=== PATIENT | female | born 1970 | race Caucasian/White ===

== ENCOUNTER 2017-01-01 16:48 | Inpatient (IN) ==
[2017-01-01] MEDS ORDERED: *HR* FentaNYL (PF) 100 MCG/2 ML VIAL IVP ONE (16:51)
[2017-01-01] MEDS ORDERED: 0.9 % Sodium Chloride 1,000 ML IVC ONE (16:51)
--- NOTE | 2017-01-01 17:05 | Emergency Department Note ---
Disposition Clinical Impression: Acute pancreatitis Qualifiers: Pancreatitis type: unspecified pancreatitis type Acute pancreatitis complication: unspecified Qualified Code(s): K85.90 - Acute pancreatitis without necrosis or infection, unspecified Disposition: Admitted As Inpatient Condition: Undetermined Referrals: Manny Adler MD [Partnered Physician] - Forms: Work/School Release, ED Satisfaction Letter Time of Disposition: 17:57 Abdominal Pain HPI - General Chief Complaint: ED Abdominal Pain Stated Complaint: Abdominal Pain Time Seen by Provider: 01/01/17 16:51 Source: patient, EMS Mode of arrival: EMS Limitations: no limitations Nursing Notes Reviewed: Yes Vital Signs Reviewed: Yes - History of Present Illness HPI Narrative: 46-year-old female with no previous medical history arrives to [facility] emergency department complaining of epigastric pain with associated nausea and vomiting. The patient called EMS with concern for worsening abdominal pain. The patient denies any actual chest pain but states that she does have epigastric pain that is radiating upward into her sternal region as well as right upper quadrant. The patient has a large amount of tenderness upon palpation of her abdomen. She actually has guarding noted. The patient received IV Zofran in route via EMS. Pt Subjective Complaint: abdominal pain Onset (ago): hour(s) (18) Consistency: constant, now resolved Location: RUQ, epigastric Pain Severity: severe Pain Scale: 10 Quality: stabbing Radiation: RUQ, epigastric Migration to: no migration Improves with: nothing Worsens with: nothing Associated symptoms: Reports: nausea, vomiting Treatments prior to arrival: none - Related Data Previous Rx's Medication Instructions Recorded Doxycycline 100 mg PO BID #14 capsule 07/07/16 metroNIDAZOLE [Flagyl] 500 mg PO BID #14 tablet 07/07/16 Allergies Allergy/AdvReac Type Severity Reaction Status Date / Time No Known Allergies Allergy Verified 07/07/16 16:37 All systems ED: reviewed and negative except as stated. Constitutional: Denies: fever, chills, weakness, weight change Eyes: Denies: eye pain, eye discharge, vision change ENT ED: Denies: ear pain, throat pain, dental pain, hearing loss, epistaxis, congestion, dysphagia Cardiovascular: Denies: chest pain, palpitations, dyspnea on exertion, edema, syncope Respiratory: Denies: cough, dyspnea, wheezes, hemoptysis, stridor Gastrointestinal: Reports: abdominal pain, nausea, vomiting. Denies: diarrhea, constipation, hematemesis, melena, hematochezia Genitourinary: Denies: dysuria, frequency, hematuria, discharge Musculoskeletal: Denies: back pain, neck pain, arthralgia, myalgia Integumentary: Denies: rash, abrasion, lesions Neurological: Denies: headache, weakness, numbness, paresthesias, confusion, abnormal gait, vertigo Abdominal Pain PMH - Past Medical History Medical history: Reports: no medical history Female Surgical History: Reports: other Psychiatric history: Reports: no psych history - Social History Smoking status: Current every day smoker Alcohol use: Reports: occasionally Drug use: Reports: none Physical Exam - General Limitations: no limitations General appearance: alert, in distress - Head Head exam: atraumatic, normocephalic, normal inspection - Eye Eye exam: Present: normal appearance, PERRL, EOMI - ENT ENT exam: normal exam, normal oropharynx, mucous membranes moist - Neck Neck exam: Present: normal inspection, full ROM, trachea midline - Chest Chest inspection: Present: normal inspection, symmetric chest wall rise - Respiratory Respiratory exam: Present: normal lung sounds bilaterally - Cardiovascular Cardiovascular exam: Present: regular rate, normal rhythm, normal heart sounds - Abdominal Exam Abdominal exam: Present: tenderness (Diffuse, RUQ), distention, guarding, rigidity, Zaldivar's sign. Absent: rebound, Rovsing's sign, tenderness at McBurney's Point, ascites, pulsatile mass Abdominal tenderness: Present: RUQ, epigastrium, severe - Extremities Exam Extremities exam: Present: normal inspection, full ROM. Absent: tenderness, pedal edema - Neurological Exam Neurological exam: Present: alert, oriented X3 - Skin Skin exam: Present: warm, dry, intact, normal color Course Vital Signs Temperature 98.4 F 01/01/17 16:51 Pulse Rate 75 01/01/17 16:51 Respiratory Rate 16 01/01/17 16:51 Blood Pressure 165/93 01/01/17 16:51 O2 Sat by Pulse Oximetry 94 01/01/17 16:51 Temperature 98.4 F 01/01/17 16:51 Pulse Rate 86 01/01/17 17:44 Respiratory Rate 16 01/01/17 17:44 Blood Pressure 183/91 01/01/17 17:44 O2 Sat by Pulse Oximetry 97 01/01/17 17:44 Oxygen Delivery Oxygen Delivery Room Air Abdominal Pain - MDM Narrative Medical decision making narrative: Patient's workup in the emergency department demonstrates acute pancreatitis. The patient's CT scan of her abdomen also demonstrates acute pancreatitis. We will admit the patient to the hospital for further work up. Accepted but Jennifer Gonsalves. I examined this patient and my medical decision-making was reviewed with the Resident Physician. I agree with the documented findings, disposition and treatment plan as described except to the extent set forth below. Patient seen and evaluated by Dr. Buckner, I agree with his evaluation and treatment plan, supervise care the patient about staying. Patient presents today having abdominal pain has no fevers here. She admits to being a drinker. She has never had a history of pancreatitis in the past. However CT today does show pancreatitis her lipase is greater than 1000. We are going to bring her into the hospital, for admission. She is in agreement with plan. I do not think she needs an NG tube at this time. Just pain control and nothing by mouth. - Medical Records Medical records reviewed: Yes I reviewed the patient's medical records. - Lab Data Lab results reviewed: Yes I reviewed the patient's lab results. Result diagrams: 01/01/17 17:00 01/01/17 17:00 Lab Results 01/01/17 01/01/17 01/01/17 Range/Units 17:00 17:00 17:00 WBC 10.6 (4.3-11.1) K/mcL RBC 3.97 (3.82-4.97) M/mcL Hgb 14.6 (11.5-15.4) g/dL Hct 42.8 (35.3-44.9) % MCV 107.8 H (83.0-100.0) fL MCH 36.8 H (28.0-33.3) pg MCHC 34.1 (31.6-35.5) g/dL RDW 14.6 H (11.5-14.5) % Plt Count 213 (140-400) K/mcL MPV 10.3 (9.4-12.4) fL Immature Gran % 0.3 (0-4) % Seg Neutrophils % 88.8 % Lymphocytes % 6.8 % Monocytes % 3.9 % Eosinophils % 0.0 % Basophils % 0.2 % Neutrophils # 9.4 H (1.6-8.9) K/mcL Lymphocytes # 0.7 (0.6-4.6) K/mcL Monocytes # 0.4 (0.0-1.3) K/mcL Eosinophils # 0.0 (0.0-0.6) K/mcL Basophils # 0.0 (0.0-0.2) K/mcL Sodium 139 (136-145) mEq/L Potassium 4.0 (3.5-4.5) mEq/L Chloride 105 (98-109) mEq/L Carbon Dioxide 24 (19-29) mEq/L BUN 11 (7-20) mg/dL Creatinine 0.78 (0.57-1.11) mg/dL Est GFR ( Amer) > 60 (> 60) Est GFR (Non-Af Amer) > 60 (> 60) BUN/Creatinine Ratio 14 (6-26) Glucose 128 H (70-99) mg/dL Calculated Osmolality 289 (280-300) Lactic Acid (0.5-2.2) mmol/L Calcium 9.2 (8.6-10.8) mg/dL Total Bilirubin 0.6 (0.2-1.2) mg/dL AST 55 H (5-34) Units/L ALT 25 (0-55) Units/L Alkaline Phosphatase 149 H (38-126) Units/L Troponin I 0.00 (0-0.03) ng/mL Serum Total Protein 7.5 (6.0-8.3) g/dL Albumin 3.5 (3.5-5.0) g/dL Globulin 4.0 H (2.4-3.5) g/dL Albumin/Globulin Ratio 0.9 L (1.1-2.2) Lipase > 1200 H (8-78) Units/L 01/01/ Range/Units 17:17 WBC (4.3-11.1) K/mcL RBC (3.82-4.97) M/mcL Hgb (11.5-15.4) g/dL Hct (35.3-44.9) % MCV (83.0-100.0) fL MCH (28.0-33.3) pg MCHC (31.6-35.5) g/dL RDW (11.5-14.5) % Plt Count (140-400) K/mcL MPV (9.4-12.4) fL Immature Gran % (0-4) % Seg Neutrophils % % Lymphocytes % % Monocytes % % Eosinophils % % Basophils % % Neutrophils # (1.6-8.9) K/mcL Lymphocytes # (0.6-4.6) K/mcL Monocytes # (0.0-1.3) K/mcL Eosinophils # (0.0-0.6) K/mcL Basophils # (0.0-0.2) K/mcL Sodium (136-145) mEq/L Potassium (3.5-4.5) mEq/L Chloride (98-109) mEq/L Carbon Dioxide (19-29) mEq/L BUN (7-20) mg/dL Creatinine (0.57-1.11) mg/dL Est GFR ( Amer) (> 60) Est GFR (Non-Af Amer) (> 60) BUN/Creatinine Ratio (6-26) Glucose (70-99) mg/dL Calculated Osmolality (280-300) Lactic Acid 1.1 (0.5-2.2) mmol/L Calcium (8.6-10.8) mg/dL Total Bilirubin (0.2-1.2) mg/dL AST (5-34) Units/L ALT (0-55) Units/L Alkaline Phosphatase (38-126) Units/L Troponin I (0-0.03) ng/mL Serum Total Protein (6.0-8.3) g/dL Albumin (3.5-5.0) g/dL Globulin (2.4-3.5) g/dL Albumin/Globulin Ratio (1.1-2.2) Lipase (8-78) Units/L - Radiology Data Radiology results reviewed: Yes I reviewed the patient's radiology results. - EKG Data EKG attestation: Yes I reviewed and interpreted this EKG. EKG results narrative: Heart rate 85 minute. MT interval 151 ms. QTc 411 milliseconds. Normal axis. Normal sinus rhythm. No ST elevation or ST depression noted. No previous EKG on record. There are flipped T waves noted in V1. No other flipped P waves noted. Mild MT depression in 3 but may be due to artifact.
[2017-01-01 17:07] LABS: Basophils % 0.2 %; Hematocrit 42.8 % (35.3-44.9); Hemoglobin 14.6 g/dL (11.5-15.4); Immature Granulocytes % 0.3 % (0-4); Lymphocytes # 0.7 K/mcL (0.6-4.6); Lymphocytes % 6.8 %; Mean Corpuscular HGB Conc 34.1 g/dL (31.6-35.5); Mean Corpuscular Hemoglobin 36.8 pg (28.0-33.3); Mean Corpuscular Volume 107.8 fL (83.0-100.0); Mean Platelet Volume 10.3 fL (9.4-12.4); Monocytes # 0.4 K/mcL (0.0-1.3); Monocytes % 3.9 %; Neutrophils # 9.4 K/mcL (1.6-8.9); Platelet Count 213 K/mcL (140-400); Red Blood Count 3.97 M/mcL (3.82-4.97); Red Cell Distribution Width 14.6 % (11.5-14.5); Segmented Neutrophils % 88.8 %
[2017-01-01 17:25] LABS: Alanine Aminotransferase 25 Units/L (0-55); Albumin 3.5 g/dL (3.5-5.0); Albumin/Globulin Ratio 0.9 (1.1-2.2); Alkaline Phosphatase 149 Units/L (38-126); Aspartate Amino Transferase 55 Units/L (5-34); BUN/Creatinine Ratio 14 (6-26); Bilirubin,Total 0.6 mg/dL (0.2-1.2); Blood Urea Nitrogen 11 mg/dL (7-20); Calcium 9.2 mg/dL (8.6-10.8); Carbon Dioxide 24 mEq/L (19-29); Chloride 105 mEq/L (98-109); Glucose 128 mg/dL (70-99); Osmolality,Calculated 289 (280-300); Sodium 139 mEq/L (136-145); Total Protein 7.5 g/dL (6.0-8.3); eGFR For African Americans > 60 (> 60); eGFR For Non-African Americans > 60 (> 60)
[2017-01-01 17:26] LABS: Lipase > 1200 Units/L (8-78)
[2017-01-01] MEDS ORDERED: Ondansetron 4 MG/2 ML VIAL IVP ONE (17:29)
[2017-01-01] MEDS ORDERED: *HR* HYDROmorphone (PF) 1 MG/ML SYRINGE IVP ONE (17:43)
[2017-01-01] MEDS ORDERED: Ondansetron 4 MG/2 ML VIAL IVP PRN (19:53)
[2017-01-01] MEDS ORDERED: Naloxone 0.4 MG/ML INJ IVP PRN (19:53)
--- NOTE | 2017-01-01 20:00 | Internal Med History&Physical ---
Date of Encounter: 01/01/17 Time of Encounter: 19:57 Assessment and Plan (1) Acute pancreatitis Current visit: Yes Status: Acute Secondary to alcoholism. Admit for IV fluids, nothing by mouth except sips and ice chips, reviewed CT abdomen and pelvis by self with evidence of acute hepatitis. IV morphine when necessary, GI prophylaxis. Qualifiers: Pancreatitis type: unspecified pancreatitis type Acute pancreatitis complication: unspecified Qualified Code(s): K85.90 - Acute pancreatitis without necrosis or infection, unspecified (2) Alcoholism Current visit: Yes Status: Acute Discussed cessation. CIWA protocol as needed (3) Tobacco abuse Current visit: Yes Status: Acute Smokes one to one half packs a day. Declined nicotine patch Internal Medicine - H&P: HPI Chief complaint: Abdominal pain History of present illness: Ms. Guo is a 46 year old female with a history of alcoholism who presents with acute onset abdominal pain and was found to have acute pancreatitis on CT abdomen and pelvis with lipase of 100,000. CT scan personally reviewed. She should develop acute epigastric pain since this morning's associated with nausea but without emesis. Pain was rated 10 out of 10 in the epigastric region with no radiation. No worsening or improving factors. Of note she has a history of alcoholism drinking 3-4 cans of tall cans of beer daily with intermittent jagermeister. She reports taking history of off more than 20 years Associated with the pain include 4 times nonbloody diarrhea stools. Past Med Surg Social Fam HX - Past Medical History Medical history: no medical history Psychiatric history: no psych history - Social History Smoking Status: Current every day smoker Smokeless Tobacco Status: No Alcohol use: occasionally Drug use: none Internal Medicine - H&P: Meds No Known Home Drugs 01/01/17 [History] Allergies No Known Allergies Allergy (Verified 01/01/17 18:42) All Systems PM: A 10-system review of systems was performed and is negative for pertinent findings except as documented above in the HPI. Review of systems: ROS 14 point review of systems reviewed. Pertinent positive or negative as per HPI or otherwise reviewed as negative - Constitutional Vitals: Temp Pulse Resp BP Pulse Ox 98.9 F 75 16 170/93 96 01/01/17 19:31 01/01/17 19:31 01/01/17 19:31 01/01/17 19:31 01/01/17 19:31 Exam: General - AAO x 3 Psych - Appropriate affect/speech. No agitation Eyes - ANDREA. Eye lids intact. No scleral icterus ENT - Oral mucosa pink, dentition intact. External ear clear/dry/intact. No thyromegaly Lymphatics - No cervical/inguinal lympadenopathy Neuro - No gross peripheral or central neuro deficits with intact CN 2-12 exam Heart - Sinus. RRR. S1 and S2 present. No added HS/murmurs appreciated. No elevated JVD appreciated. No calf swellings/erythema Lung - Adequate air entry b/l, No crackes/wheezes appreciated GI - Soft, epigastric tenderness, no guarding or rigidity. No hepatosplenomegaly /ascities. BS+ - No CVA/suprapubic tenderness or palpable bladder distension Skin - Intact. No rash/petechiae/ecchymosis. Warm extremities MSK - Joints with normal ROM. No joint swellings Internal Med - H&P Results - Labs CBC & Chem 7: 01/01/17 17:00 01/01/17 17:00
[2017-01-01] MEDS ORDERED: diazePAM 10 MG/2 ML SYRINGE IVP PRN ×5 (20:04)
[2017-01-01] MEDS: 0.9 % Sodium Chloride 1,000 ML IVC SCH (20:34)
[2017-01-01] MEDS: Thiamine (B-1) 100 MG, Folic Acid 1 MG, MVI, adult with vitamin K 10 ML in 0.9 % Sodi... IVPB SCH (22:11)
[2017-01-01] MEDS: Prochlorperazine 10 MG/2 ML VIAL IVP PRN (23:17)
[2017-01-02 01:40] LABS: Basophils % 0.2 %; Hematocrit 39.4 % (35.3-44.9); Hemoglobin 13.3 g/dL (11.5-15.4); Immature Granulocytes % 0.7 % (0-4); Lymphocytes # 0.6 K/mcL (0.6-4.6); Lymphocytes % 6.1 %; Mean Corpuscular HGB Conc 33.8 g/dL (31.6-35.5); Mean Corpuscular Hemoglobin 36.9 pg (28.0-33.3); Mean Corpuscular Volume 109.4 fL (83.0-100.0); Mean Platelet Volume 10.7 fL (9.4-12.4); Monocytes # 0.4 K/mcL (0.0-1.3); Monocytes % 4.3 %; Neutrophils # 9.1 K/mcL (1.6-8.9); Platelet Count 199 K/mcL (140-400); Red Cell Distribution Width 14.6 % (11.5-14.5); Segmented Neutrophils % 88.7 %
[2017-01-02 01:53] LABS: BUN/Creatinine Ratio 13 (6-26); Blood Urea Nitrogen 10 mg/dL (7-20); Calcium 8.2 mg/dL (8.6-10.8); Carbon Dioxide 21 mEq/L (19-29); Chloride 108 mEq/L (98-109); Glucose 117 mg/dL (70-99); Osmolality,Calculated 290 (280-300); Potassium 4.1 mEq/L (3.5-4.5); Sodium 140 mEq/L (136-145); eGFR For African Americans > 60 (> 60); eGFR For Non-African Americans > 60 (> 60)
[2017-01-02 02:15] LABS: Lipase 1552 Units/L (8-78)
[2017-01-02] MEDS: *HR* Morphine 2 MG/ML SYRINGE IVP PRN ×5 (03:50→20:53)
[2017-01-02] MEDS: Ondansetron 4 MG/2 ML VIAL IVP PRN ×5 (03:50→23:42)
[2017-01-02] MEDS: *HR* Enoxaparin 40 MG/0.4 ML SYRINGE SQ SCH (05:20)
[2017-01-02] MEDS: Thiamine (B-1) 100 MG TABLET PO SCH (07:59)
[2017-01-02] MEDS: Vitamin B Complex/Vit C/Vit E 1 EACH TABLET PO SCH (07:59)
[2017-01-02] MEDS: Folic Acid 1 MG TABLET PO SCH (07:59)
[2017-01-02] MEDS: Pantoprazole 40 MG VIAL IVP SCH (08:02)
[2017-01-02] MEDS: 0.9 % Sodium Chloride 1,000 ML IVC SCH ×2 (10:06→16:52)
--- NOTE | 2017-01-02 12:05 | Internal Med Progress Note ---
Date of Encounter: 01/02/17 Time of Encounter: 09:40 - Assessment and plan (1) Acute pancreatitis Current Visit: Yes Status: Acute Assessment and plan: Continue to keep NPO, except clear liquids and medications Continue IVF Check lipid panel Qualifiers: Pancreatitis type: unspecified pancreatitis type Acute pancreatitis complication: unspecified Qualified Code(s): K85.90 - Acute pancreatitis without necrosis or infection, unspecified (2) Alcoholism Current Visit: Yes Status: Chronic Assessment and plan: SW consult Continue CIWA protocol If patient does not require benzodiapzepines in the next 24hrs, will de-escalate Continue M/T/F (3) Tobacco abuse Current Visit: Yes Status: Chronic Assessment and plan: NRT - Subjective Interval history: Seen and evaluated at bedside Still complaining of nausea, she reports her abdominal pain has somewhat improved, but persists Denies ever having hospitalization for alcohol withdrawal She has no hx of alcohol related seizures She has not required any benzodiazepines since arrival - Constitutional Vitals: Temp Pulse Resp BP Pulse Ox 98.2 F 86 17 175/89 96 01/02/17 10:24 01/02/17 10:24 01/02/17 10:24 01/02/17 10:24 01/02/17 10:24 General appearance: Present: mild distress, A&O X 3, pleasant - Head Head exam: Present: atraumatic, normocephalic - Eye Eye exam: Present: PERRL, conjuntiva pink, sclera anicteric Pupils: Present: PERRL - Neck Neck exam general surgery: Present: supple, trachea midline. Absent: lymphadenopathy - Respiratory Respiratory exam: Present: CTAB. Absent: accessory muscle use, rales, rhonchi, wheezes - Cardiovascular Cardiovascular exam: Present: RRR, +S1, +S2. Absent: diastolic murmur, gallop, rubs, systolic murmur - GI/Abdominal GI/Abdominal exam: Present: normal bowel sounds, soft, tenderness (mild epigastric tenderness, no rebound), no peritoneal signs. Absent: distended - Extremities Exam Extremities exam: Present: warm, radial pulses palpable and symetrical. Absent : calf tenderness, cyanotic, pedal edema Additional comments: NO tremors - Neurological Exam Neurological exam: Present: alert, CN II-XII intact, oriented X3, no focal deficits. Absent: pronater drift, facial droop, speech deficit - Skin Skin exam: Present: dry, intact Internal Medicine: Result - Labs CBC & Chem 7: 01/02/17 00:28 01/02/17 00:28 Labs: Short CBC 01/02/17 Range/Units 00:28 WBC 10.2 (4.3-11.1) K/mcL Hgb 13.3 (11.5-15.4) g/dL Hct 39.4 (35.3-44.9) % Plt Count 199 (140-400) K/mcL Neutrophils # 9.1 H (1.6-8.9) K/mcL BMP 01/02/17 00:28 Sodium 140 Potassium 4.1 Chloride 108 Carbon Dioxide 21 BUN 10 Creatinine 0.75 Glucose 117 H Calcium 8.2 L Consult Discharge Plan - Plan Referrals: NONE,PCP [Primary Care Provider] -
--- NOTE | 2017-01-02 16:18 | Electrocardiograph Report ---
[address] [address] Test Date: 2017-01-01 Pat Name: Marilyn Guo Department: 105 Room: [facility] Gender: F [employer]: : 1970 Requested By: Adin Louis Order Number: [id number] Reading MD: Natalya Tidwell Measurements Intervals [place] Rate: 85 P: 37 SD: 151 QRS: 38 QRSD: 80 T: 78 QT: 369 QTc: 411 Interpretive Statements SINUS RHYTHM NONSPECIFIC T-WAVE ABNORMALITY Electronically Signed On 01-02-2017 16:16:33 EDT by Natalya Tidwell
[2017-01-02] MEDS: Thiamine (B-1) 100 MG, Folic Acid 1 MG, MVI, adult with vitamin K 10 ML in 0.9 % Sodi... IVPB SCH (17:48)
[2017-01-02] MEDS ORDERED: Thiamine (B-1) 100 MG, Folic Acid 1 MG, MVI, adult with vitamin K 10 ML in 0.9 % Sodi... IVPB SCH (18:00)
[2017-01-02 19:56] LABS: Bilirubin,Urine Negative (Negative); Blood,Urine Small (Negative); Clarity,Urine Cloudy (Clear); Color,Urine Yellow (Yellow); Glucose,Urine (UA) Normal (Normal); Ketones,Urine >=160 mg/dL (Negative); Leukocyte Esterase,Urine Large (Negative); Nitrite,Urine Negative (Negative); Protein,Urine 30 mg/dL (Neg-Trace); Specific Gravity,Urine 1.019 (1.010-1.025); Urobilinogen,Urine Normal (Normal)
[2017-01-02 19:59] LABS: Bacteria,Urine Few per hpf (None-Few); Hyaline Casts,Urine None Seen per lpf (None-Few); Squamous Epithelial Cell,Urine Many per lpf (None-Few); WBC,Urine TNTC per hpf (0-3)
[2017-01-02] MEDS ORDERED: Metoprolol XL (24 HR) Succ 25 MG TAB.ER.24H PO ONE (20:30)
[2017-01-03] MEDS: *HR* Morphine 2 MG/ML SYRINGE IVP PRN ×6 (01:03→20:37)
[2017-01-03] MEDS: Ondansetron 4 MG/2 ML VIAL IVP PRN ×4 (04:25→20:36)
[2017-01-03] MEDS: *HR* Enoxaparin 40 MG/0.4 ML SYRINGE SQ SCH (04:43)
[2017-01-03 06:39] LABS: Basophils % 0.1 %; Eosinophils % 0.1 %; Hematocrit 31.6 % (35.3-44.9); Immature Granulocytes % 0.5 % (0-4); Lymphocytes # 0.9 K/mcL (0.6-4.6); Lymphocytes % 7.4 %; Mean Corpuscular HGB Conc 34.2 g/dL (31.6-35.5); Mean Corpuscular Hemoglobin 37.5 pg (28.0-33.3); Mean Corpuscular Volume 109.7 fL (83.0-100.0); Mean Platelet Volume 10.9 fL (9.4-12.4); Monocytes # 0.7 K/mcL (0.0-1.3); Monocytes % 6.3 %; Neutrophils # 10.1 K/mcL (1.6-8.9); Platelet Count 151 K/mcL (140-400); Red Blood Count 2.88 M/mcL (3.82-4.97); Red Cell Distribution Width 14.6 % (11.5-14.5); Segmented Neutrophils % 85.6 %
[2017-01-03 06:40] LABS: Hemoglobin 10.8 g/dL (11.5-15.4)
[2017-01-03 06:53] LABS: Alanine Aminotransferase 14 Units/L (0-55); Albumin/Globulin Ratio 0.8 (1.1-2.2); Alkaline Phosphatase 90 Units/L (38-126); Aspartate Amino Transferase 24 Units/L (5-34); BUN/Creatinine Ratio 10 (6-26); Bilirubin,Total 0.7 mg/dL (0.2-1.2); Blood Urea Nitrogen 6 mg/dL (7-20); Carbon Dioxide 17 mEq/L (19-29); Chloride 108 mEq/L (98-109); Chol/HDL Ratio 3.5 (0-4.9); Cholesterol 150 mg/dL (< 200); Globulin 3.2 g/dL (2.4-3.5); Glucose 71 mg/dL (70-99); HDL Cholesterol 43 mg/dL (40-59); LDL Cholesterol,Calculated 90 mg/dL (0-99); Lipase 719 Units/L (8-78); Osmolality,Calculated 278 (280-300); Potassium 3.3 mEq/L (3.5-4.5); Sodium 136 mEq/L (136-145); Triglycerides 85 mg/dL (< 150); eGFR For African Americans > 60 (> 60); eGFR For Non-African Americans > 60 (> 60)
[2017-01-03 06:55] LABS: Albumin 2.7 g/dL (3.5-5.0); Total Protein 5.9 g/dL (6.0-8.3)
[2017-01-03] MEDS: Pantoprazole 40 MG VIAL IVP SCH (08:11)
[2017-01-03] MEDS: 0.9 % Sodium Chloride 1,000 ML IVC SCH ×3 (08:24→22:46)
[2017-01-03] MEDS: Thiamine (B-1) 100 MG TABLET PO SCH (08:31)
[2017-01-03] MEDS: Vitamin B Complex/Vit C/Vit E 1 EACH TABLET PO SCH (08:31)
[2017-01-03] MEDS: Folic Acid 1 MG TABLET PO SCH (08:31)
[2017-01-03] MEDS ORDERED: amLODIPine 5 MG TABLET PO SCH (09:00)
--- NOTE | 2017-01-03 11:45 | Internal Med Progress Note ---
Date of Encounter: 01/03/17 Time of Encounter: 09:00 - Assessment and plan (1) Acute pancreatitis Current Visit: Yes Status: Acute Assessment and plan: Advance patient's diet as tolerated, continue morphine for pain, add Tylenol and by mouth medications for pain. Lipase is down trending, patient has good bowel sounds Lipid panel is unremarkable for hypertriglyceridemia. Continue IVF Qualifiers: Pancreatitis type: unspecified pancreatitis type Acute pancreatitis complication: unspecified Qualified Code(s): K85.90 - Acute pancreatitis without necrosis or infection, unspecified (2) Alcoholism Current Visit: Yes Status: Chronic Assessment and plan: SW consult Change [facility] protocol to q48h Continue M/T/F (3) Tobacco abuse Current Visit: Yes Status: Chronic Assessment and plan: NRT (4) Hypertension Current Visit: Yes Status: Chronic Assessment and plan: Started on Norvasc 10mg daily, continue to monitor Qualifiers: Hypertension type: essential hypertension Qualified Code(s): I10 - Essential (primary) hypertension (5) UTI (urinary tract infection) Current Visit: Yes Status: Suspected Assessment and plan: Suspected, based on symptoms and abnormal UA Patient also has leukocytosis this morning, she is afebrile and not tachycardic Started on Ceftriaxone Qualifiers: Urinary tract infection type: acute cystitis Hematuria presence: with hematuria Qualified Code(s): N30.01 - Acute cystitis with hematuria (6) Anemia Current Visit: Yes Status: Chronic Assessment and plan: Sent folate, vitamin B12, and iron studies. Anemia is macrocytic and is possibly due to alcohol use. Continue to monitor hemoglobin. Qualifiers: Anemia type: unspecified type Qualified Code(s): D64.9 - Anemia, unspecified (7) Hypokalemia Current Visit: Yes Status: Acute Assessment and plan: Potassium has been replaced IV continue to monitor. - Subjective Interval history: Seen and evaluated at bedside Patient is admitted and being managed for alcoholic acute pancreatitis, She is seen and evaluated at the bedside this morning, she reports improvement in and her abdominal pain and nausea. Of note, her blood pressure has remained persistently high since admission, patient denied a history of hypertension. She also complained of dysuria, and a urinalysis done yesterday revealed suspected UTI. Patient is tolerating clear liquid diet. She is still requiring IV pain medications. she has not required any benzodiazepines since admission. - Constitutional Vitals: Temp Pulse Resp BP Pulse Ox 98.7 F 86 18 152/87 95 01/03/17 09:44 01/03/17 09:44 01/03/17 09:44 01/03/17 09:44 01/03/17 09:44 General appearance: Present: A&O X 3, pleasant, no acute distress - Head Head exam: Present: atraumatic, normocephalic - Eye Eye exam: Present: PERRL, conjuntiva pink, sclera anicteric Pupils: Present: PERRL - Neck Neck exam general surgery: Present: supple, trachea midline. Absent: lymphadenopathy - Respiratory Respiratory exam: Present: CTAB. Absent: accessory muscle use, rales, rhonchi, wheezes - Cardiovascular Cardiovascular exam: Present: RRR, +S1, +S2. Absent: diastolic murmur, gallop, rubs, systolic murmur - GI/Abdominal GI/Abdominal exam: Present: normal bowel sounds, soft, tenderness (mild, epigastric), no peritoneal signs. Absent: distended - Extremities Exam Extremities exam: Present: warm, radial pulses palpable and symetrical. Absent : calf tenderness, cyanotic, pedal edema - Neurological Exam Neurological exam: Present: alert, CN II-XII intact, oriented X3, no focal deficits. Absent: pronater drift, facial droop, speech deficit - Skin Skin exam: Present: dry, intact Internal Medicine: Result - Labs CBC & Chem 7: 01/03/17 05:32 01/03/17 05:32 Labs: Short CBC 01/03/17 Range/Units 05:32 WBC 11.8 H (4.3-11.1) K/mcL Hgb 10.8 L D (11.5-15.4) g/dL Hct 31.6 L (35.3-44.9) % Plt Count 151 (140-400) K/mcL Neutrophils # 10.1 H (1.6-8.9) K/mcL BMP 01/03/17 05:32 Sodium 136 Potassium 3.3 L Chloride 108 Carbon Dioxide 17 L BUN 6 L Creatinine 0.63 Glucose 71 Calcium 8.0 L Liver Function 01/03/17 Range/Units 05:32 Total Bilirubin 0.7 (0.2-1.2) mg/dL AST 24 (5-34) Units/L ALT 14 (0-55) Units/L Alkaline Phosphatase 90 (38-126) Units/L Albumin 2.7 L D (3.5-5.0) g/dL Urine 01/02/17 Range/Units 19:45 Urine Color Yellow (Yellow) Urine Clarity Cloudy A (Clear) Urine pH 6.0 (5.0-8.0) pH Units Ur Specific Dorothy 1.019 (1.010-1.025) Urine Protein 30 H (Neg-Trace) mg/dL Urine Glucose (UA) Normal (Normal) mg/dL Consult Discharge Plan - Plan Referrals: NONE,PCP [Primary Care Provider] -
[2017-01-03] MEDS ORDERED: Acetaminophen 325 MG TABLET PO PRN (14:07)
[2017-01-03] MEDS: *HR* OxyCODONE Immed Rel 5 MG TABLET PO PRN ×2 (14:49→22:49)
[2017-01-03] MEDS ORDERED: Sennosides/Docusate Sodium TABLET PO SCH (15:15)
[2017-01-03] MEDS: Prochlorperazine 10 MG/2 ML VIAL IVP PRN (17:05)
[2017-01-03] MEDS: Thiamine (B-1) 100 MG, Folic Acid 1 MG, MVI, adult with vitamin K 10 ML in 0.9 % Sodi... IVPB SCH (17:20)
[2017-01-03] MEDS ORDERED: Metoprolol XL (24 HR) Succ 25 MG TAB.ER.24H PO ONE (19:24)
[2017-01-04] MEDS: Ondansetron 4 MG/2 ML VIAL IVP PRN ×2 (00:36→04:31)
[2017-01-04 00:49] VITALS: BP 163/77
[2017-01-04 01:43] LABS: Basophils % 0.1 %; Eosinophils % 0.3 %; Hematocrit 29.1 % (35.3-44.9); Hemoglobin 10.1 g/dL (11.5-15.4); Immature Granulocytes % 0.7 % (0-4); Lymphocytes # 0.9 K/mcL (0.6-4.6); Mean Corpuscular HGB Conc 34.7 g/dL (31.6-35.5); Mean Corpuscular Hemoglobin 37.4 pg (28.0-33.3); Mean Corpuscular Volume 107.8 fL (83.0-100.0); Mean Platelet Volume 10.1 fL (9.4-12.4); Monocytes # 0.7 K/mcL (0.0-1.3); Monocytes % 7.1 %; Neutrophils # 8.3 K/mcL (1.6-8.9); Platelet Count 153 K/mcL (140-400); Red Cell Distribution Width 14.4 % (11.5-14.5); Segmented Neutrophils % 82.8 %
[2017-01-04 01:55] LABS: BUN/Creatinine Ratio 6 (6-26); Calcium 8.5 mg/dL (8.6-10.8); Carbon Dioxide 17 mEq/L (19-29); Chloride 107 mEq/L (98-109); Glucose 89 mg/dL (70-99); Lipase 295 Units/L (8-78); Osmolality,Calculated 272 (280-300); Potassium 3.3 mEq/L (3.5-4.5); Sodium 133 mEq/L (136-145); eGFR For African Americans > 60 (> 60); eGFR For Non-African Americans > 60 (> 60)
[2017-01-04 01:56] LABS: Blood Urea Nitrogen 3 mg/dL (7-20)
[2017-01-04 01:57] LABS: % Iron Saturation 10 % (15-50); Iron 22 mcg/dL (50-170); Transferrin 159 mg/dL (180-382)
[2017-01-04 02:32] LABS: Folate 19.1 ng/mL (7.0-31.4)
[2017-01-04] MEDS: *HR* Morphine 2 MG/ML SYRINGE IVP PRN (03:08)
[2017-01-04] MEDS: *HR* Enoxaparin 40 MG/0.4 ML SYRINGE SQ SCH (04:31)
--- NOTE | 2017-01-04 13:52 | Event Note ---
Date of Encounter: 01/04/17 Time of Encounter: 13:48 Patient was said to have signed AMA prior to the begining of my shift I did not evaluate her this morning She was being managed for UTI, Pancreatitis and HTN She is an alcoholic Her urine culture is growing GPC, suspected enterococcus I have sent a script for Omnicef and Amlodipine to the pharmacy electronically and have requested the charge nurse Giana to kindly call the patient and have her order picker the medications
== END 2017-01-04 06:50 | disposition left against medical advice (07) | DRG 282 ==
LOC: EMEROO 16:48 → 3NENU 16:48
PROVIDERS: ADMIT Nurse Practitioner Family; ATTEND Internal Medicine

== ENCOUNTER 2017-12-15 20:58 | Inpatient (IN) ==
[2017-12-15 21:22] LABS: Bilirubin,Urine Small (Negative); Blood,Urine Negative (Negative); Clarity,Urine Turbid (Clear); Color,Urine Dark Yellow (Yellow); Glucose,Urine (UA) Normal (Normal); Ketones,Urine Trace mg/dL (Negative); Leukocyte Esterase,Urine Moderate (Negative); Nitrite,Urine Positive (Negative); Protein,Urine 30 mg/dL (Neg-Trace); Specific Gravity,Urine 1.016 (1.010-1.025); Urobilinogen,Urine Normal (Normal)
[2017-12-15 21:24] LABS: Bacteria,Urine Many per hpf (None-Few); Squamous Epithelial Cell,Urine Many per lpf (None-Few); WBC,Urine 30-50 per hpf (0-3)
[2017-12-15] MEDS ORDERED: 0.9 % Sodium Chloride 1,000 ML IVC ONE (22:13)
[2017-12-15] MEDS ORDERED: *HR* FentaNYL (PF) 100 MCG/2 ML VIAL IVP ONE (22:13)
[2017-12-15] MEDS ORDERED: Ondansetron 4 MG/2 ML VIAL IVP ONE (22:13)
--- NOTE | 2017-12-15 22:15 | Emergency Department Note ---
Disposition Clinical Impression: Acute pancreatitis Qualifiers: Pancreatitis type: alcohol induced Acute pancreatitis complication: no infection or necrosis Qualified Code(s): K85.20 - Alcohol induced acute pancreatitis without necrosis or infection Disposition: Admitted As Inpatient Condition: Fair Referrals: Beverly Serna MD [Primary Care Provider] - Forms: ED Satisfaction Letter, Work/School Release Time of Disposition: 23:56 Abdominal Pain HPI - General Chief Complaint: ED Abdominal Pain Stated Complaint: abdominal pain Time Seen by Provider: 12/15/17 21:54 Source: patient, EMS Mode of arrival: EMS Limitations: no limitations Nursing Notes Reviewed: Yes Vital Signs Reviewed: Yes - History of Present Illness Pt Subjective Complaint: abdominal pain Onset (ago): hour(s) (Started this morning) Consistency: constant Location: LUQ, epigastric Pain Severity: severe Pain Scale: 10 Quality: sharp Radiation: back Migration to: no migration Improves with: nothing Worsens with: eating, other (Deep breaths) Context: history of similar episodes (Secondary to pancreatitis which has been a result of alcohol intake. Patient did a lot of drinking on Thursday night.) Associated symptoms: Reports: nausea, vomiting Treatments prior to arrival: none - Related Data Previous Rx's Medication Instructions Recorded Cefdinir [Omnicef] 300 mg PO DAILY #6 capsule 01/04/17 Allergies Allergy/AdvReac Type Severity Reaction Status Date / Time No Known Allergies Allergy Verified 01/01/17 18:42 All systems ED: reviewed and negative except as stated. Constitutional: Denies: fever, chills ENT ED: Denies: ear pain, throat pain, congestion Cardiovascular: Denies: chest pain, palpitations Respiratory: Denies: cough, dyspnea Gastrointestinal: Reports: abdominal pain, nausea, vomiting. Denies: diarrhea Genitourinary: Denies: urgency, dysuria, frequency Musculoskeletal: Reports: back pain Integumentary: Denies: rash Neurological: Denies: headache Abdominal Pain PMH - Past Medical History Medical history: Reports: no medical history Female Surgical History: Reports: other Psychiatric history: Reports: no psych history - Social History Smoking status: Current every day smoker Alcohol use: Reports: occasionally Drug use: Reports: none Physical Exam - General Limitations: no limitations General appearance: alert, in no apparent distress - Head Head exam: atraumatic, normocephalic, normal inspection - Eye Eye exam: Present: normal appearance, PERRL, EOMI. Absent: scleral icterus, conjunctival injection - ENT ENT exam: normal exam, normal oropharynx, mucous membranes dry, normal external ear exam - Neck Neck exam: Present: normal inspection, full ROM - Chest Chest inspection: Present: normal inspection, symmetric chest wall rise. Absent : tenderness - Respiratory Respiratory exam: Present: normal lung sounds bilaterally. Absent: respiratory distress, wheezes - Cardiovascular Cardiovascular exam: Present: regular rate, normal rhythm, normal heart sounds - Abdominal Exam Abdominal exam: Present: soft, tenderness, normal bowel sounds. Absent: distention Abdominal tenderness: Present: LUQ, epigastrium, severe - Extremities Exam Extremities exam: Present: normal inspection. Absent: pedal edema - Neurological Exam Neurological exam: Present: alert, oriented X3 - Psychiatric Psychiatric exam: Present: normal affect, normal mood - Skin Skin exam: Present: warm, dry. Absent: rash Course Course Narrative: Patient presents with epigastric and left upper quadrant pain that certainly sounds like could be pancreatitis. Examination seems consistent with that as well. I will get her some medicines for sent him relief. We will do a belly pain workup on her. I am and a CT her abdomen to help assess for pancreatitis as well as other possible causes. Disposition will be based on diagnostic results and reevaluation. - Reevaluation(s) Reevaluation #1: Labs show elevated lipase. CT confirms pancreatitis. No other competitions identified. Patient is to be admitted to the hospital. Of already spoken with the hospitalist. Time: 23:55 - Consultations Consultation #1: Dr. Reyes, hospitalist - I discussed the case with the hospitalist. He accepted the patient for admission. He wants her on a telemetry bed. Time: 23:55 Vital Signs Temperature 98.1 F 12/15/17 21:07 Pulse Rate 98 12/15/17 21:07 Respiratory Rate 18 12/15/17 21:07 Blood Pressure 156/108 12/15/17 21:07 O2 Sat by Pulse Oximetry 97 12/15/17 21:07 Temperature 98.1 F 12/15/17 21:52 Pulse Rate 98 12/15/17 21:52 Respiratory Rate 18 12/15/17 21:52 Blood Pressure 156/108 12/15/17 21:52 O2 Sat by Pulse Oximetry 97 12/15/17 21:52 Oxygen Delivery Oxygen Delivery Room Air Abdominal Pain - Lab Data Lab results reviewed: Yes I reviewed the patient's lab results. Result diagrams: 12/15/17 22:12 12/15/17 22:12 Lab Results 12/15/17 12/15/17 12/15/17 Range/Units 21:00 21:00 22:12 WBC 10.8 (4.3-11.1) K/mcL RBC 4.80 (3.82-4.97) M/mcL Hgb 18.1 H (11.5-15.4) g/dL Hct 50.3 H (35.3-44.9) % MCV 104.8 H (83.0-100.0) fL MCH 37.7 H (28.0-33.3) pg MCHC 36.0 H (31.6-35.5) g/dL RDW 14.6 H (11.5-14.5) % Plt Count 205 (140-400) K/mcL MPV 11.1 (9.4-12.4) fL Immature Gran % 0.5 (0-4) % Seg Neutrophils % 81.7 % Lymphocytes % 11.8 % Monocytes % 5.5 % Eosinophils % 0.2 % Basophils % 0.3 % Neutrophils # 8.8 (1.6-8.9) K/mcL Lymphocytes # 1.3 (0.6-4.6) K/mcL Monocytes # 0.6 (0.0-1.3) K/mcL Eosinophils # 0.0 (0.0-0.6) K/mcL Basophils # 0.0 (0.0-0.2) K/mcL Sodium (136-145) mEq/L Potassium (3.5-5.1) mEq/L Chloride (98-107) mEq/L Carbon Dioxide (23-29) mEq/L BUN (6-20) mg/dL Creatinine (0.60-1.20) mg/dL Est GFR ( Amer) (> 60) Est GFR (Non-Af Amer) (> 60) BUN/Creatinine Ratio (6-26) Glucose (70-105) mg/dL Calculated Osmolality (280-300) Lactic Acid (0.5-2.2) mmol/L Calcium (8.6-10.3) mg/dL Total Bilirubin (0.3-1.0) mg/dL Direct Bilirubin (0.0-0.2) mg/dL Indirect Bilirubin (0.0-1.2) mg/dL AST (13-39) Units/L ALT (7-52) Units/L Alkaline Phosphatase (34-104) Units/L Serum Total Protein (6.4-8.9) g/dL Albumin (3.5-5.7) g/dL Globulin (2.4-3.5) g/dL Albumin/Globulin Ratio (1.1-2.2) Lipase (11-82) Units/L Urine Color Dark Yellow (Yellow) Urine Clarity Turbid A (Clear) Urine pH 7.0 (5.0-8.0) pH Units Ur Specific [place] 1.016 (1.010-1.025) Urine Protein 30 H (Neg-Trace) mg/dL Urine Glucose (UA) Normal (Normal) mg/dL Urine Ketones Trace H (Negative) mg/dL Urine Blood Negative (Negative) Urine Nitrite Positive A (Negative) Urine Bilirubin Small H (Negative) Urine Urobilinogen Normal (Normal) mg/dL Ur Leukocyte Esterase Moderate H (Negative) Urine Microscopic RBC 5-15 H (0-3) per hpf Urine Microscopic WBC 30-50 H (0-3) per hpf Ur Squamous Epith Cells Many H (None-Few) per lpf Urine Bacteria Many H (None-Few) per hpf Ur Culture Indicated? NO. A (NO) Urine Test Negative (Negative) Ethyl Alcohol (Less than 10) mg/dL 12/15/17 12/15/17 Range/Units 22:12 22:41 WBC (4.3-11.1) K/mcL RBC (3.82-4.97) M/mcL Hgb (11.5-15.4) g/dL Hct (35.3-44.9) % MCV (83.0-100.0) fL MCH (28.0-33.3) pg MCHC (31.6-35.5) g/dL RDW (11.5-14.5) % Plt Count (140-400) K/mcL MPV (9.4-12.4) fL Immature Gran % (0-4) % Seg Neutrophils % % Lymphocytes % % Monocytes % % Eosinophils % % Basophils % % Neutrophils # (1.6-8.9) K/mcL Lymphocytes # (0.6-4.6) K/mcL Monocytes # (0.0-1.3) K/mcL Eosinophils # (0.0-0.6) K/mcL Basophils # (0.0-0.2) K/mcL Sodium 140 (136-145) mEq/L Potassium 3.7 (3.5-5.1) mEq/L Chloride 104 (98-107) mEq/L Carbon Dioxide 24 (23-29) mEq/L BUN 6 (6-20) mg/dL Creatinine 0.65 (0.60-1.20) mg/dL Est GFR ( Amer) > 60 (> 60) Est GFR (Non-Af Amer) > 60 (> 60) BUN/Creatinine Ratio 9 (6-26) Glucose 147 H (70-105) mg/dL Calculated Osmolality 290 (280-300) Lactic Acid 0.9 (0.5-2.2) mmol/L Calcium 9.9 (8.6-10.3) mg/dL Total Bilirubin 0.7 (0.3-1.0) mg/dL Direct Bilirubin 0.2 (0.0-0.2) mg/dL Indirect Bilirubin 0.5 (0.0-1.2) mg/dL AST 44 H (13-39) Units/L ALT 52 (7-52) Units/L Alkaline Phosphatase 138 H (34-104) Units/L Serum Total Protein 7.1 (6.4-8.9) g/dL Albumin 4.3 (3.5-5.7) g/dL Globulin 2.8 (2.4-3.5) g/dL Albumin/Globulin Ratio 1.5 (1.1-2.2) Lipase 673 H (11-82) Units/L Urine Color (Yellow) Urine Clarity (Clear) Urine pH (5.0-8.0) pH Units Ur Specific [place] (1.010-1.025) Urine Protein (Neg-Trace) mg/dL Urine Glucose (UA) (Normal) mg/dL Urine Ketones (Negative) mg/dL Urine Blood (Negative) Urine Nitrite (Negative) Urine Bilirubin (Negative) Urine Urobilinogen (Normal) mg/dL Ur Leukocyte Esterase (Negative) Urine Microscopic RBC (0-3) per hpf Urine Microscopic WBC (0-3) per hpf Ur Squamous Epith Cells (None-Few) per lpf Urine Bacteria (None-Few) per hpf Ur Culture Indicated? (NO) Urine Test (Negative) Ethyl Alcohol < 10 (Less than 10) mg/dL - Radiology Data Radiology results reviewed: Yes I reviewed the patient's radiology results.
[2017-12-15 22:43] LABS: Basophils % 0.3 %; Eosinophils % 0.2 %; Hematocrit 50.3 % (35.3-44.9); Hemoglobin 18.1 g/dL (11.5-15.4); Immature Granulocytes % 0.5 % (0-4); Lymphocytes # 1.3 K/mcL (0.6-4.6); Lymphocytes % 11.8 %; Mean Corpuscular Hemoglobin 37.7 pg (28.0-33.3); Mean Corpuscular Volume 104.8 fL (83.0-100.0); Mean Platelet Volume 11.1 fL (9.4-12.4); Monocytes # 0.6 K/mcL (0.0-1.3); Monocytes % 5.5 %; Neutrophils # 8.8 K/mcL (1.6-8.9); Platelet Count 205 K/mcL (140-400); Red Cell Distribution Width 14.6 % (11.5-14.5); Segmented Neutrophils % 81.7 %
[2017-12-15 23:21] LABS: Alanine Aminotransferase 52 Units/L (7-52); Albumin 4.3 g/dL (3.5-5.7); Albumin/Globulin Ratio 1.5 (1.1-2.2); Alkaline Phosphatase 138 Units/L (34-104); Aspartate Amino Transferase 44 Units/L (13-39); BUN/Creatinine Ratio 9 (6-26); Bilirubin,Direct 0.2 mg/dL (0.0-0.2); Bilirubin,Indirect 0.5 mg/dL (0.0-1.2); Bilirubin,Total 0.7 mg/dL (0.3-1.0); Blood Urea Nitrogen 6 mg/dL (6-20); Calcium 9.9 mg/dL (8.6-10.3); Carbon Dioxide 24 mEq/L (23-29); Chloride 104 mEq/L (98-107); Ethanol < 10 mg/dL (Less than 10); Globulin 2.8 g/dL (2.4-3.5); Glucose 147 mg/dL (70-105); Lipase 673 Units/L (11-82); Osmolality,Calculated 290 (280-300); Potassium 3.7 mEq/L (3.5-5.1); Sodium 140 mEq/L (136-145); Total Protein 7.1 g/dL (6.4-8.9); eGFR For African Americans > 60 (> 60); eGFR For Non-African Americans > 60 (> 60)
--- NOTE | 2017-12-16 00:50 | Internal Med History&Physical ---
Date of Encounter: 12/16/17 Time of Encounter: 00:47 Internal Medicine - H&P: HPI Chief complaint: Abd pain Admitted From: Home History of present illness: Ms. Guo is a 47 year old female with a past medical history of pancreatitis, alcohol dependence, and tobacco dependence who presented complaining of abdominal pain for 1 week and gradually getting worse since yesterday morning. Pain is located in epigastric and left upper quadrant region, constant, sharp, and radiates to her back. Nothing makes it better or worse. Patient reports associated nausea and vomiting and history of similar symptoms in the past when she was treated for alcoholic pancreatitis. Patient reports drinking 3 tall boy beers daily. She also reports occasional chills and foul smelling urine. Patient denies associated fever, chest pain, shortness of breath, diarrhea, constipation, or leg edema. Patient denies history of alcohol withdrawal seizures in the past Past Med Surg Social Fam HX - Past Medical History Medical history: other (Pancreatitis) Psychiatric history: no psych history - Past Surgical History Surgical History: other Additional surgical history: skin CA on chest removal, salivia gland removed. - Social History Smoking Status: Current every day smoker Smokeless Tobacco Status: No Alcohol use: occasionally Drug use: none Current living situation: Home - Independent - Family History Mother Adopted: No Living Status: Hx Family Cardiac Disorders: No Hx Family Respiratory Disorders: No Hx Family Cancer: Yes Hx Family GI Disorders: No Hx Family Endocrine Disorder: No Hx Family Neuromuscular Disorders: No Hx Family Neurologic Disorders: No Hx Family HEENT Disorders: No Hx Family Autoimmune Disorders: No Father Name: Adin Guo Cause of : Brain bleed Hx Family Neurologic Disorders: Yes (Hemorrhagic CVA) Internal Medicine - H&P: Meds Cefdinir [Omnicef] 300 mg PO DAILY #6 capsule 01/04/17 [Rx] 3 Allergy/AdvReac Type Severity Reaction Status Date / Time No Known Allergies Allergy Verified 01/01/17 18:42 All Systems PM: A 10-system review of systems was performed and is negative for pertinent findings except as documented above in the HPI. - Constitutional Constitutional: anorexia, chills, fatigue, no fever(s), no lethargy, no weakness , no weight gain, no weight loss - EENT Eyes: no blurry vision, no diplopia Nose, mouth and throat: no sinus pressure, no sore throat - Cardiovascular Cardiovascular ROS IM: no chest pain, no dyspnea, no edema - Respiratory Respiratory: no cough, no dyspnea on exertion, no wheezing - Gastrointestinal Gastrointestinal: abdominal pain, cramping, nausea, vomiting, no diarrhea, no heartburn, no hematemesis, no hematochezia, no melena - Genitourinary Genitourinary: dysuria (foul odor), urinary frequency, urinary urgency, no hematuria - Musculoskeletal Musculoskeletal ROS IM: no back pain, no numbness, no tingling - Integumentary Integumentary IM: no new lesions, no rash, no skin ulcer - Neurological Neurological ROS: no confusion, no numbness, no tingling, no weakness - Psychiatric Psychiatric: no anxiety, no depression - Endocrine Endocrine IM: fatigue, no flushing, no polydipsia, no polyphagia, no polyuria - Hematologic/Lymphatic Hematologic/Lymphatic: no easy bleeding, no easy bruising - Constitutional Vitals: Temp Pulse Resp BP Pulse Ox 98.2 F 67 19 188/90 97 12/16/17 00:43 12/16/17 00:43 12/16/17 00:43 12/16/17 00:43 12/16/17 00:43 General appearance: Present: cooperative, mild distress, pleasant, answers questions appropriately - Head Head exam: Present: atraumatic, normocephalic - Eye Eye exam: Present: EOMI, PERRL, conjuntiva pink, sclera anicteric Pupils: Present: PERRL - ENT ENT exam: Present: mucous membranes dry, normal oropharynx - Neck Neck exam general surgery: Present: supple, trachea midline. Absent: lymphadenopathy - Respiratory Respiratory exam: Present: CTAB. Absent: accessory muscle use, rales, rhonchi, wheezes - Cardiovascular Cardiovascular exam: Present: RRR, +S1, +S2. Absent: diastolic murmur, gallop, rubs, systolic murmur - GI/Abdominal GI/Abdominal exam: Present: normal bowel sounds, soft, tenderness (Epigastric), no peritoneal signs. Absent: distended - Extremities Exam Extremities exam: Present: normal capillary refill, warm, radial pulses palpable and symmetrical. Absent: calf tenderness, cyanotic, pedal edema - Back Exam Back exam: Present: normal inspection. Absent: CVA tenderness (L), CVA tenderness (R), paraspinal tenderness, tenderness - Neurological Exam Neurological exam: Present: CN II-XII intact, oriented X3, no focal deficits. Absent: pronater drift, facial droop, speech deficit - Psychiatric Psychiatric exam: Present: anxious, normal affect - Skin Skin exam: Present: dry, intact, normal color (tattoos), warm Internal Med - H&P Results - Labs CBC & Chem 7: 12/15/17 22:12 12/15/17 22:12 - Pulse Oximetry Interpretation Digit-Finger O2 Sat by Pulse Oximetry: 97 (Room air) - Impressions ITS Impressions Abdomen/Pelvis CT 12/15/17 22:12 IMPRESSION: Acute pancreatitis. D/ / Lul Castañeda MD / Lul Castañeda MD Interpreting Provider: Lul Castañeda MD - Assessment and plan (1) Acute pancreatitis Current Visit: Yes Status: Acute Assessment and plan: Patient with abdominal pain, nausea, vomiting, and lipase level 637 CT abdomen and pelvis revealed acute pancreatitis Continue IV hydration Continue pain control Continue antiemetics NPO, advance diet to clear liquid diet as tolerated Continue close monitoring Qualifiers: Pancreatitis type: alcohol induced Acute pancreatitis complication: no infection or necrosis Qualified Code(s): K85.20 - Alcohol induced acute pancreatitis without necrosis or infection (2) Alcoholism Current Visit: No Status: Chronic Assessment and plan: Patient denies history of alcohol withdrawal seizures in the past Patient drinks 3 tall boy beers daily Blood alcohol level less than 10 Continue monitoring for signs of withdrawal (3) UTI (urinary tract infection) Current Visit: No Status: Suspected Assessment and plan: Patient reports foul smelling urine, frequency, and urgency UA revealed turbid appearance, positive nitrite, moderate leukocyte esterase and elevated white blood cell count Start Rocephin IV (day 1) Qualifiers: Urinary tract infection type: acute cystitis Hematuria presence: with hematuria Qualified Code(s): N30.01 - Acute cystitis with hematuria (4) Hypertension Current Visit: No Status: Chronic Assessment and plan: Blood pressure elevated today in the setting of pain from acute pancreatitis Continue hydralazine when necessary Consider starting antihypertensive medication upon discharge if blood pressure remains elevated despite adequate pain control Qualifiers: Hypertension type: essential hypertension Qualified Code(s): I10 - Essential (primary) hypertension (5) Tobacco abuse Current Visit: No Status: Chronic Assessment and plan: Tobacco cessation discussed Nicotine patch ordered (6) DVT prophylaxis Current Visit: Yes Status: Acute Assessment and plan: Ambulation TID - Time Spent With Patient Total time spent is greater than 50% in coordination of care (as documented) at patient's floor/unit and/or counseling patient:
[2017-12-16] MEDS ORDERED: Naloxone 0.4 MG/ML INJ IVP PRN (01:15)
[2017-12-16] MEDS ORDERED: Ketorolac 15 MG/ML VIAL IVP ONE (01:18)
[2017-12-16] MEDS ORDERED: Nicotine 14 MG PATCH.TD24 TD SCH ×2 (01:19→02:00)
[2017-12-16 01:54] LABS: Hematocrit 45.5 % (35.3-44.9); Mean Corpuscular HGB Conc 35.8 g/dL (31.6-35.5); Mean Corpuscular Hemoglobin 37.8 pg (28.0-33.3); Mean Corpuscular Volume 105.6 fL (83.0-100.0); Mean Platelet Volume 11.2 fL (9.4-12.4); Platelet Count 195 K/mcL (140-400); Red Blood Count 4.31 M/mcL (3.82-4.97); Red Cell Distribution Width 14.6 % (11.5-14.5)
[2017-12-16 01:58] LABS: Hemoglobin 16.3 g/dL (11.5-15.4)
[2017-12-16 02:03] LABS: Alanine Aminotransferase 43 Units/L (7-52); Albumin 3.8 g/dL (3.5-5.7); Albumin/Globulin Ratio 1.5 (1.1-2.2); Alkaline Phosphatase 119 Units/L (34-104); Aspartate Amino Transferase 34 Units/L (13-39); BUN/Creatinine Ratio 11 (6-26); Bilirubin,Total 0.6 mg/dL (0.3-1.0); Blood Urea Nitrogen 6 mg/dL (6-20); Calcium 8.9 mg/dL (8.6-10.3); Carbon Dioxide 22 mEq/L (23-29); Chloride 108 mEq/L (98-107); Globulin 2.6 g/dL (2.4-3.5); Glucose 147 mg/dL (70-105); Osmolality,Calculated 290 (280-300); Potassium 3.5 mEq/L (3.5-5.1); Sodium 140 mEq/L (136-145); Total Protein 6.4 g/dL (6.4-8.9); eGFR For African Americans > 60 (> 60); eGFR For Non-African Americans > 60 (> 60)
[2017-12-16] MEDS ORDERED: OXYCODONE Oral CONC 10 MG/0.5 ML ORAL.SYG SL PRN (02:14)
[2017-12-16] MEDS: 0.9 % Sodium Chloride 1,000 ML IVC SCH ×2 (02:24→05:53)
[2017-12-16] MEDS: cefTRIAXone 1,000 MG in Water for inj. (sterile) 20 ML 10 ML IVP SCH (02:25)
[2017-12-16] MEDS: Ondansetron 4 MG/2 ML VIAL IVP PRN ×2 (02:25→14:51)
[2017-12-16] MEDS: Pantoprazole 40 MG VIAL IVP SCH ×2 (05:53→18:13)
[2017-12-16] MEDS: Ketorolac 15 MG/ML VIAL IVP SCH ×2 (05:53→12:25)
[2017-12-16] MEDS: Nicotine 14 MG PATCH.TD24 TD SCH (08:39)
[2017-12-16] MEDS: Folic Acid 1 MG TABLET PO SCH (08:39)
[2017-12-16] MEDS: Thiamine (B-1) 100 MG TABLET PO SCH (08:39)
[2017-12-16] MEDS: Multivit/Ca/Min/Fe/FA 1 TAB TABLET PO SCH (08:39)
[2017-12-16] MEDS: OXYCODONE Oral CONC 10 MG/0.5 ML ORAL.SYG SL PRN ×2 (14:42→21:13)
[2017-12-16] MEDS ORDERED: *HR* Morphine 2 MG/ML SYRINGE IVP PRN (17:27)
--- NOTE | 2017-12-16 17:46 | Event Note ---
Date of Encounter: 12/16/17 Time of Encounter: 17:32 Acute pancreatitis Pt states oxycodone not helping with abdominal pain. Will write for prn morphine. If abdominal pain persists or progresses, Will consider re-imaging to r/o [place] such as abscess or necrosis. Continue fluids, bowel rest, and pain control. Acute cystitis Pt spiked a temp of 100, checking blood culture and urine culture. On Rocephin. Physical exam: - GI/Abdominal GI/Abdominal exam: Present: normal bowel sounds, soft, tenderness (Epigastric), no peritoneal signs. Absent: distended
[2017-12-16] MEDS: Acetaminophen 325 MG TABLET PO PRN (18:13)
[2017-12-16] MEDS: Ketorolac 15 MG/ML VIAL IVP PRN (18:13)
[2017-12-17] MEDS: Ketorolac 15 MG/ML VIAL IVP PRN ×4 (00:21→20:30)
[2017-12-17] MEDS: cefTRIAXone 1,000 MG in Water for inj. (sterile) 20 ML 10 ML IVP SCH (02:30)
[2017-12-17] MEDS: Ondansetron 4 MG/2 ML VIAL IVP PRN ×2 (02:39→22:40)
[2017-12-17] MEDS: Acetaminophen 325 MG TABLET PO PRN ×3 (02:40→19:30)
[2017-12-17] MEDS: OXYCODONE Oral CONC 10 MG/0.5 ML ORAL.SYG SL PRN ×3 (05:54→22:36)
[2017-12-17] MEDS: Pantoprazole 40 MG VIAL IVP SCH ×2 (05:59→16:42)
[2017-12-17 06:29] LABS: Chol/HDL Ratio 3.6 (0-4.9)
[2017-12-17] MEDS: 0.9 % Sodium Chloride 1,000 ML IVC SCH ×2 (08:22→20:29)
[2017-12-17] MEDS: Nicotine 14 MG PATCH.TD24 TD SCH (08:22)
[2017-12-17] MEDS: Thiamine (B-1) 100 MG TABLET PO SCH (08:23)
[2017-12-17] MEDS: Folic Acid 1 MG TABLET PO SCH (08:23)
[2017-12-17] MEDS: Multivit/Ca/Min/Fe/FA 1 TAB TABLET PO SCH (08:23)
--- NOTE | 2017-12-17 09:58 | Internal Med Progress Note ---
<Tam Rutledge S - Last Filed: 12/17/17 13:53> Date of Encounter: 12/17/17 Time of Encounter: 09:00 - Assessment and plan (1) Acute pancreatitis Current Visit: Yes Status: Acute Assessment and plan: Pt presented with epigastric abd pain radiation to the back. Lipase was 637. Will recheck lipase today to see if trending down CT abdomen showed acute pancreatitis IVF 100cc/hr NS Continue prn pain control with morphine and oxycodone Pt is on prn antiemetics, zofran Advanced diet yesterday to clear liquids as tolerated. 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 Qualifiers: Pancreatitis type: alcohol induced Acute pancreatitis complication: no infection or necrosis Qualified Code(s): K85.20 - Alcohol induced acute pancreatitis without necrosis or infection (2) Alcoholism Current Visit: No Status: Chronic Assessment and plan: Pt drinks everyday Pt doesn't qualify for CIWA protocol as she is >3days since last drink without any s/s of alcohol withdrawal Blood alcohol <10 on admition No hx of seizures (3) Tobacco abuse Current Visit: No Status: Chronic Assessment and plan: Pt on nicotine patch Encourage tobacco cessation (4) Hypertension Current Visit: No Status: Chronic Assessment and plan: BP today 174/90 Hydralazine prn HTN Add antiHTN medication when discharge, PCP followup in residency clinic if possible since pt has no PCP. Will ask if she wants to see me. Will give Lopressor 10mg IVP. Qualifiers: Hypertension type: essential hypertension Qualified Code(s): I10 - Essential (primary) hypertension (5) UTI (urinary tract infection) Current Visit: No Status: Resolved Assessment and plan: Patient reports foul smelling urine, frequency, and urgency. SHe said today there is no dysuria or hematuria Rocephin day 2 UA showed 30-50 WBC, 5-15RBC (+) nitrites Qualifiers: Urinary tract infection type: acute cystitis Hematuria presence: with hematuria Qualified Code(s): N30.01 - Acute cystitis with hematuria (6) DVT prophylaxis Current Visit: Yes Status: Acute Assessment and plan: Ambulation - Time Spent With Patient Total time spent is greater than 50% in coordination of care (as documented) at patient's floor/unit and/or counseling patient: less than 15 minutes - Subjective Interval history: Pt is seen at bedside. She was admitted for epigastric pain on Thursday. She has a history of alcoholic pancreatitis x 3. She hasn't had a drink since Thursday. Currently she has epigastric pain rated as a 7/10 with radiation to the back, some stomach discomfort too SHe says her nausea is being well controled with prn zofran. Pt denies any tremors, anxiety, hallucinations consistent with alcohol withdrawal or DT's Pt denies any painful urination Patient is counsled on alcohol cessation She is on Rocephin day 2 Fluids 100cc/hr 0.9% NS Electrolytes - pt currently has all electroytes WNL Nutrition - pt is tolerating clear liquids, may progress diet to some softs today if tolerated GI prophylaxis - pt is on Protonix 40mg IVP DVT prophylaxis - ambulate TID - Constitutional Vitals: Temp Pulse Resp BP Pulse Ox 98.3 F 87 18 174/90 93 12/17/17 05:47 12/17/17 05:47 12/17/17 05:47 12/17/17 05:47 12/17/17 05:47 General appearance: Present: cooperative, mild distress, pleasant, answers questions appropriately - Head Head exam: Present: normal inspection - Neck Neck exam general surgery: Present: supple - Respiratory Respiratory exam: Present: CTAB - Cardiovascular Cardiovascular exam: Present: +S1, +S2 - GI/Abdominal GI/Abdominal exam: Present: soft, tenderness, no peritoneal signs - Neurological Exam Neurological exam: Present: no focal deficits - Psychiatric Psychiatric exam: Present: normal affect, normal mood - Skin Skin exam: Present: normal color Internal Medicine: Result - Labs CBC & Chem 7: 12/16/17 01:32 12/16/17 01:32 - Impressions Impressions Abdomen Ultrasound 12/17/17 09:00 IMPRESSION: 1. Areas of fatty infiltration within the liver. 2. Otherwise, no sonographic abnormality within the visualized right upper quadrant. 3. The pancreas is not well visualized. D/ / Reginaldo Moses MD / Reginaldo Moses MD Interpreting Provider: Reginaldo Moses MD Consult Discharge Plan - Plan Referrals: Beverly Serna MD [Primary Care Provider] - <Albertina Solitario - Last Filed: 12/17/17 17:59> Date of Encounter: 12/17/17 - Assessment and plan (1) Acute pancreatitis Current Visit: Yes Status: Acute Qualifiers: Pancreatitis type: alcohol induced Acute pancreatitis complication: no infection or necrosis Qualified Code(s): K85.20 - Alcohol induced acute pancreatitis without necrosis or infection (2) Alcoholism Current Visit: No Status: Chronic (3) Tobacco abuse Current Visit: No Status: Chronic (4) Hypertension Current Visit: No Status: Chronic Qualifiers: Hypertension type: essential hypertension Qualified Code(s): I10 - Essential (primary) hypertension (5) UTI (urinary tract infection) Current Visit: No Status: Resolved Qualifiers: Urinary tract infection type: acute cystitis Hematuria presence: with hematuria Qualified Code(s): N30.01 - Acute cystitis with hematuria (6) DVT prophylaxis Current Visit: Yes Status: Acute - Time Spent With Patient Total time spent is greater than 50% in coordination of care (as documented) at patient's floor/unit and/or counseling patient: - Constitutional Vitals: Temp Pulse Resp BP Pulse Ox 98.0 F 80 14 161/89 96 12/17/17 15:28 12/17/17 15:28 12/17/17 15:28 12/17/17 15:28 12/17/17 15:28 Internal Medicine: Result - Labs CBC & Chem 7: 12/16/17 01:32 12/16/17 01:32 - Impressions Impressions Abdomen Ultrasound 12/17/17 09:00 IMPRESSION: 1. Areas of fatty infiltration within the liver. 2. Otherwise, no sonographic abnormality within the visualized right upper quadrant. 3. The pancreas is not well visualized. D/ / Reginaldo Moses MD / Reginaldo Moses MD Interpreting Provider: Reginaldo Moses MD - Attending Attestation I saw and evaluated the patient at bedside. I have reviewed the progress note obtained and documented by the resident and personally participated in the estrada components. I have discussed the case and management of the patient's care. I agree with the findings and plan of care.The following comments revise or confirm relevant estrada components of their note Acute pancreatitis w Lipase in 600 s Daily ETOH consumption- needs close monitoring for withdrawals UTI - Rocephin - await Cx Smoker- cessation advised
[2017-12-17] MEDS: *HR* Metoprolol 5 MG/5 ML VIAL IVP PRN (11:11)
[2017-12-18] MEDS: cefTRIAXone 1,000 MG in Water for inj. (sterile) 20 ML 10 ML IVP SCH (01:34)
[2017-12-18] MEDS: Acetaminophen 325 MG TABLET PO PRN ×3 (01:34→18:16)
[2017-12-18] MEDS: *HR* Metoprolol 5 MG/5 ML VIAL IVP PRN ×2 (01:35→23:05)
[2017-12-18] MEDS: Ketorolac 15 MG/ML VIAL IVP PRN ×4 (03:15→21:59)
[2017-12-18] MEDS: Pantoprazole 40 MG VIAL IVP SCH ×2 (05:31→17:24)
[2017-12-18] MEDS: OXYCODONE Oral CONC 10 MG/0.5 ML ORAL.SYG SL PRN ×3 (05:31→18:16)
[2017-12-18] MEDS: 0.9 % Sodium Chloride 1,000 ML IVC SCH (05:32)
[2017-12-18 06:02] LABS: Basophils % 0.1 %; Eosinophils % 0.5 %; Hematocrit 42.1 % (35.3-44.9); Hemoglobin 14.9 g/dL (11.5-15.4); Immature Granulocytes % 0.4 % (0-4); Lymphocytes % 11.9 %; Mean Corpuscular HGB Conc 35.4 g/dL (31.6-35.5); Mean Corpuscular Hemoglobin 38.1 pg (28.0-33.3); Mean Corpuscular Volume 107.7 fL (83.0-100.0); Mean Platelet Volume 11.5 fL (9.4-12.4); Monocytes # 0.7 K/mcL (0.0-1.3); Monocytes % 7.6 %; Neutrophils # 6.8 K/mcL (1.6-8.9); Platelet Count 162 K/mcL (140-400); Red Blood Count 3.91 M/mcL (3.82-4.97); Red Cell Distribution Width 14.9 % (11.5-14.5); Segmented Neutrophils % 79.5 %
[2017-12-18 06:28] LABS: Alanine Aminotransferase 24 Units/L (7-52); Albumin 3.6 g/dL (3.5-5.7); Albumin/Globulin Ratio 1.2 (1.1-2.2); Alkaline Phosphatase 97 Units/L (34-104); Aspartate Amino Transferase 20 Units/L (13-39); BUN/Creatinine Ratio 17 (6-26); Bilirubin,Total 0.5 mg/dL (0.3-1.0); Blood Urea Nitrogen 7 mg/dL (6-20); Calcium 9.2 mg/dL (8.6-10.3); Carbon Dioxide 17 mEq/L (23-29); Chloride 107 mEq/L (98-107); Glucose 86 mg/dL (70-105); Lipase 458 Units/L (11-82); Osmolality,Calculated 275 (280-300); Potassium 3.6 mEq/L (3.5-5.1); Sodium 134 mEq/L (136-145); Total Protein 6.6 g/dL (6.4-8.9); eGFR For African Americans > 60 (> 60); eGFR For Non-African Americans > 60 (> 60)
--- NOTE | 2017-12-18 09:31 | Internal Med Progress Note ---
<Tam Rutledge S - Last Filed: 12/18/17 13:25> Date of Encounter: 12/18/17 Time of Encounter: 09:00 - Assessment and plan (1) Acute pancreatitis Current Visit: Yes Status: Acute Assessment and plan: Pt presented with epigastric abd pain radiation to the back. Lipase was 637 today it is 458. CT abdomen showed acute pancreatitis; abdomainl US showed areas of fatty infiltration w/in the liver. No abscess or psuedocysts noted IVF 100cc/hr NS Continue prn pain control with morphine and oxycodone Pt is on Zofran prn nausea Advanced diet to softs - pt not tolerating. Encourage to advance until tolerated [employer] pt on alcohol and smoking cessation Qualifiers: Pancreatitis type: alcohol induced Acute pancreatitis complication: no infection or necrosis Qualified Code(s): K85.20 - Alcohol induced acute pancreatitis without necrosis or infection (2) Alcoholism Current Visit: No Status: Chronic Assessment and plan: Pt drinks everyday Pt doesn't qualify for CIWA protocol as she is >3days since last drink without any s/s of alcohol withdrawal Blood alcohol <10 on admition No hx of seizures Monitor for any s/s of agitation or withdrawal (3) Tobacco abuse Current Visit: No Status: Chronic Assessment and plan: Pt on nicotine patch Encourage tobacco cessation (4) Hypertension Current Visit: No Status: Chronic Assessment and plan: BP today 168/93 Hydralazine prn HTN Will give Lopressor 10mg IVP again today Qualifiers: Hypertension type: essential hypertension Qualified Code(s): I10 - Essential (primary) hypertension (5) UTI (urinary tract infection) Current Visit: No Status: Resolved Assessment and plan: Patient reports foul smelling urine, frequency, and urgency. She denies any dysuria, hematuria, frequency or urgency today Rocephin day 3 UA showed 30-50 WBC, 5-15RBC (+) nitrites Qualifiers: Urinary tract infection type: acute cystitis Hematuria presence: with hematuria Qualified Code(s): N30.01 - Acute cystitis with hematuria (6) DVT prophylaxis Current Visit: Yes Status: Acute Assessment and plan: Ambulation - Time Spent With Patient Total time spent is greater than 50% in coordination of care (as documented) at patient's floor/unit and/or counseling patient: less than 15 minutes - Subjective Interval history: Pt is seen at bedside. She was admitted for epigastric pain on Thursday. She has a history of alcoholic pancreatitis x 3. She hasn't had a drink since Thursday. Currently she has epigastric pain rated as a 5/10. She states there is some radiation to the back but says it is from laying in bed. She has some nausea still but is taking zofran as needed. Pt denies any tremors, anxiety, hallucinations consistent with alcohol withdrawal or DT's Pt denies any painful urination - on rocephin day 3 Patient is counsled on alcohol cessation and counsled to follow up with residency clinic because she doesn't got a PCP provider. Pt has complaints of abdominal pain with eating. She is eating very little food and says it aggravates the pain. Encouraged pt to eat and progress diet as much as she can tolerate. Fluids 100cc/hr 0.9% NS - will continue because she is not eating much and has some abd pain with eating Electrolytes - pt currently has all electroytes WNL Nutrition - pt is on softs. Has some belly pain with eating GI prophylaxis - pt is on Protonix 40mg IVP DVT prophylaxis - ambulate TID - Constitutional Vitals: Temp Pulse Resp BP Pulse Ox 98.2 F 85 16 168/93 97 12/18/17 07:01 12/18/17 07:01 12/18/17 07:01 12/18/17 07:01 12/18/17 07:01 General appearance: Present: cooperative, mild distress, pleasant, answers questions appropriately - Head Head exam: Present: normal inspection - Neck Neck exam general surgery: Present: supple - Respiratory Respiratory exam: Present: CTAB - Cardiovascular Cardiovascular exam: Present: RRR, +S1, +S2 - GI/Abdominal GI/Abdominal exam: Present: normal bowel sounds, tenderness, no peritoneal signs - Neurological Exam Neurological exam: Present: oriented X3, no focal deficits - Psychiatric Psychiatric exam: Present: normal affect, normal mood - Skin Skin exam: Present: intact Internal Medicine: Result - Labs CBC & Chem 7: 12/18/17 05:18 12/18/17 05:18 Labs: Short CBC 12/18/17 Range/Units 05:18 WBC 8.5 (4.3-11.1) K/mcL Hgb 14.9 (11.5-15.4) g/dL Hct 42.1 (35.3-44.9) % Plt Count 162 (140-400) K/mcL Neutrophils # 6.8 (1.6-8.9) K/mcL BMP 12/18/17 05:18 Sodium 134 L Potassium 3.6 Chloride 107 Carbon Dioxide 17 L BUN 7 Creatinine 0.42 L Glucose 86 Calcium 9.2 Liver Function 12/18/17 Range/Units 05:18 Total Bilirubin 0.5 (0.3-1.0) mg/dL AST 20 (13-39) Units/L ALT 24 (7-52) Units/L Alkaline Phosphatase 97 (34-104) Units/L Albumin 3.6 (3.5-5.7) g/dL - Impressions Impressions Abdomen Ultrasound 12/17/17 09:00 IMPRESSION: 1. Areas of fatty infiltration within the liver. 2. Otherwise, no sonographic abnormality within the visualized right upper quadrant. 3. The pancreas is not well visualized. D/ / Reginaldo Moses MD / Reginaldo Moses MD Interpreting Provider: Reginaldo Moses MD Consult Discharge Plan - Plan Referrals: Beverly Serna MD [Primary Care Provider] - <Albertina Solitario - Last Filed: 12/18/17 17:46> Date of Encounter: 12/18/17 - Assessment and plan (1) Acute pancreatitis Current Visit: Yes Status: Acute Qualifiers: Pancreatitis type: alcohol induced Acute pancreatitis complication: no infection or necrosis Qualified Code(s): K85.20 - Alcohol induced acute pancreatitis without necrosis or infection (2) Alcoholism Current Visit: No Status: Chronic (3) Tobacco abuse Current Visit: No Status: Chronic (4) Hypertension Current Visit: No Status: Chronic Qualifiers: Hypertension type: essential hypertension Qualified Code(s): I10 - Essential (primary) hypertension (5) UTI (urinary tract infection) Current Visit: No Status: Resolved Qualifiers: Urinary tract infection type: acute cystitis Hematuria presence: with hematuria Qualified Code(s): N30.01 - Acute cystitis with hematuria (6) DVT prophylaxis Current Visit: Yes Status: Acute - Time Spent With Patient Total time spent is greater than 50% in coordination of care (as documented) at patient's floor/unit and/or counseling patient: - Constitutional Vitals: Temp Pulse Resp BP Pulse Ox 98.1 F 78 16 186/97 95 12/18/17 15:19 12/18/17 15:19 12/18/17 15:19 12/18/17 15:19 12/18/17 15:19 Internal Medicine: Result - Labs CBC & Chem 7: 12/18/17 05:18 12/18/17 05:18 Labs: Short CBC 12/18/17 Range/Units 05:18 WBC 8.5 (4.3-11.1) K/mcL Hgb 14.9 (11.5-15.4) g/dL Hct 42.1 (35.3-44.9) % Plt Count 162 (140-400) K/mcL Neutrophils # 6.8 (1.6-8.9) K/mcL BMP 12/18/17 05:18 Sodium 134 L Potassium 3.6 Chloride 107 Carbon Dioxide 17 L BUN 7 Creatinine 0.42 L Glucose 86 Calcium 9.2 Liver Function 12/18/17 Range/Units 05:18 Total Bilirubin 0.5 (0.3-1.0) mg/dL AST 20 (13-39) Units/L ALT 24 (7-52) Units/L Alkaline Phosphatase 97 (34-104) Units/L Albumin 3.6 (3.5-5.7) g/dL - Attending Attestation I saw and evaluated the patient at bedside. I have reviewed the progress note obtained and documented by the resident and personally participated in the estrada components. I have discussed the case and management of the patient's care. I agree with the findings and plan of care.The following comments revise or confirm relevant estrada components of their note. Acute pancreatitis SLow improval continue IVF and pain control Advance diet slowly as tolerated Rest per resident A/P
[2017-12-18] MEDS: Thiamine (B-1) 100 MG TABLET PO SCH (09:33)
[2017-12-18] MEDS: Multivit/Ca/Min/Fe/FA 1 TAB TABLET PO SCH (09:33)
[2017-12-18] MEDS: Nicotine 14 MG PATCH.TD24 TD SCH (09:33)
[2017-12-18] MEDS: Folic Acid 1 MG TABLET PO SCH (09:33)
[2017-12-18] MEDS: Ringers Solution, Lactated 500 ML IVC SCH ×2 (16:03→23:05)
[2017-12-18] MEDS: Ondansetron 4 MG/2 ML VIAL IVP PRN (18:16)
[2017-12-19] MEDS: Ondansetron 4 MG/2 ML VIAL IVP PRN (00:17)
[2017-12-19] MEDS: OXYCODONE Oral CONC 10 MG/0.5 ML ORAL.SYG SL PRN ×2 (00:18→08:16)
[2017-12-19] MEDS: Acetaminophen 325 MG TABLET PO PRN ×2 (00:18→08:21)
[2017-12-19 02:25] LABS: Basophils % 0.1 %; Eosinophils % 0.3 %; Hematocrit 40.5 % (35.3-44.9); Hemoglobin 14.3 g/dL (11.5-15.4); Immature Granulocytes % 0.4 % (0-4); Lymphocytes # 0.8 K/mcL (0.6-4.6); Lymphocytes % 10.4 %; Mean Corpuscular HGB Conc 35.3 g/dL (31.6-35.5); Mean Corpuscular Hemoglobin 37.3 pg (28.0-33.3); Mean Corpuscular Volume 105.7 fL (83.0-100.0); Mean Platelet Volume 11.4 fL (9.4-12.4); Monocytes # 0.5 K/mcL (0.0-1.3); Monocytes % 6.9 %; Neutrophils # 6.3 K/mcL (1.6-8.9); Platelet Count 169 K/mcL (140-400); Red Blood Count 3.83 M/mcL (3.82-4.97); Red Cell Distribution Width 14.7 % (11.5-14.5); Segmented Neutrophils % 81.9 %
[2017-12-19 02:43] LABS: Alanine Aminotransferase 24 Units/L (7-52); Albumin 3.8 g/dL (3.5-5.7); Albumin/Globulin Ratio 1.3 (1.1-2.2); Alkaline Phosphatase 91 Units/L (34-104); Aspartate Amino Transferase 22 Units/L (13-39); BUN/Creatinine Ratio 12 (6-26); Bilirubin,Total 0.5 mg/dL (0.3-1.0); Blood Urea Nitrogen 5 mg/dL (6-20); Calcium 9.4 mg/dL (8.6-10.3); Carbon Dioxide 14 mEq/L (23-29); Chloride 106 mEq/L (98-107); Globulin 2.9 g/dL (2.4-3.5); Glucose 100 mg/dL (70-105); Osmolality,Calculated 273 (280-300); Potassium 3.4 mEq/L (3.5-5.1); Sodium 133 mEq/L (136-145); Total Protein 6.7 g/dL (6.4-8.9); eGFR For African Americans > 60 (> 60); eGFR For Non-African Americans > 60 (> 60)
[2017-12-19] MEDS: Ketorolac 15 MG/ML VIAL IVP PRN ×3 (04:10→17:22)
[2017-12-19] MEDS: cefTRIAXone 1,000 MG in Water for inj. (sterile) 20 ML 10 ML IVP SCH (04:11)
[2017-12-19] MEDS: Pantoprazole 40 MG VIAL IVP SCH ×2 (05:50→19:16)
[2017-12-19] MEDS ORDERED: Potassium Chloride 40 MEQ, Lidocaine 1% 2 ML in D5% in Water 500 ML IVPB ONE (07:53)
[2017-12-19] MEDS ORDERED: *HR* Labetalol 20 MG/4 ML SYRINGE IVP PRN (07:57)
[2017-12-19] MEDS: Folic Acid 1 MG TABLET PO SCH (08:14)
[2017-12-19] MEDS: Multivit/Ca/Min/Fe/FA 1 TAB TABLET PO SCH (08:14)
[2017-12-19] MEDS: Thiamine (B-1) 100 MG TABLET PO SCH (08:14)
[2017-12-19] MEDS: Nicotine 14 MG PATCH.TD24 TD SCH (08:14)
[2017-12-19] MEDS ORDERED: 0.9 % Sodium Chloride 500 ML ONE (11:12)
--- NOTE | 2017-12-19 13:43 | Internal Med Progress Note ---
Date of Encounter: 12/19/17 Time of Encounter: 12:30 - Assessment and plan (1) Acute pancreatitis Current Visit: Yes Status: Acute Assessment and plan: EtOH pancreatitis, very slowly improving no evidence of end-organ dysfunction, US on 12/17 did not reveal any locoregional complications continue to have poor appetite continue IVF, symptomatic mx encourage oral intake Qualifiers: Pancreatitis type: alcohol induced Acute pancreatitis complication: no infection or necrosis Qualified Code(s): K85.20 - Alcohol induced acute pancreatitis without necrosis or infection (2) UTI (urinary tract infection) Current Visit: No Status: Resolved Assessment and plan: D4 Pj, complete the course tomorrow Qualifiers: Urinary tract infection type: acute cystitis Hematuria presence: with hematuria Qualified Code(s): N30.01 - Acute cystitis with hematuria (3) Alcoholism Current Visit: No Status: Chronic Assessment and plan: >3days out since last drink without any s/s of alcohol withdrawal Blood alcohol <10 on admission No hx of withdrawal seizures Monitor for any s/s of agitation or withdrawal thiamine, folic acid (4) Tobacco abuse Current Visit: No Status: Chronic Assessment and plan: Pt on nicotine patch Encourage tobacco cessation (5) Hypertension Current Visit: No Status: Chronic Assessment and plan: PRN labetalol and hydralazine until she can take by mouth more reliably Qualifiers: Hypertension type: essential hypertension Qualified Code(s): I10 - Essential (primary) hypertension (6) Hypokalemia Current Visit: No Status: Acute Assessment and plan: repleted IV (7) DVT prophylaxis Current Visit: Yes Status: Acute Assessment and plan: Ambulation - Time Spent With Patient Total time spent is greater than 50% in coordination of care (as documented) at patient's floor/unit and/or counseling patient: - Subjective Interval history: abdominal pain very slowly improving, still doesn't have much appetite. No fever /chills, dysuria. - Constitutional Vitals: Temp Pulse Resp BP Pulse Ox 97.7 F 105 16 174/88 97 12/19/17 11:25 12/19/17 11:25 12/19/17 11:25 12/19/17 11:25 12/19/17 11:25 General appearance: Present: cooperative, mild distress, pleasant, answers questions appropriately Exam: General: Alert and oriented Cardiovascular:Normal S1 & S2, no murmurs or gallops. No JVD. Pulse regular. Lungs:Normal breath sounds, no wheezes or crackles. Abdomen:Soft, mild epigastric/LUQ tenderness without rebound/guarding Extremities:No deformity, no edema or tenderness, no joint swelling. Rest of the physical exam is non-contributory Internal Medicine: Result - Labs CBC & Chem 7: 12/19/17 01:50 12/19/17 01:50 Labs: Short CBC 12/19/17 Range/Units 01:50 WBC 7.7 (4.3-11.1) K/mcL Hgb 14.3 (11.5-15.4) g/dL Hct 40.5 (35.3-44.9) % Plt Count 169 (140-400) K/mcL Neutrophils # 6.3 (1.6-8.9) K/mcL BMP 12/19/17 01:50 Sodium 133 L Potassium 3.4 L Chloride 106 Carbon Dioxide 14 L BUN 5 L Creatinine 0.41 L Glucose 100 Calcium 9.4 Liver Function 12/19/17 Range/Units 01:50 Total Bilirubin 0.5 (0.3-1.0) mg/dL AST 22 (13-39) Units/L ALT 24 (7-52) Units/L Alkaline Phosphatase 91 (34-104) Units/L Albumin 3.8 (3.5-5.7) g/dL Consult Discharge Plan - Plan Referrals: Beverly Serna MD [Primary Care Provider] -
[2017-12-19] MEDS: *HR* OxyCODONE/APAP 7.5/325 TABLET PO PRN ×2 (15:05→20:16)
[2017-12-19] MEDS ORDERED: Ringers Solution, Lactated 1,000 ML IVC SCH ×2 (20:30→20:45)
[2017-12-20] MEDS: *HR* OxyCODONE/APAP 7.5/325 TABLET PO PRN ×2 (00:09→05:03)
[2017-12-20] MEDS: Ketorolac 15 MG/ML VIAL IVP PRN ×2 (00:09→08:57)
[2017-12-20] MEDS: cefTRIAXone 1,000 MG in Water for inj. (sterile) 20 ML 10 ML IVP SCH (02:13)
[2017-12-20] MEDS: Pantoprazole 40 MG VIAL IVP SCH (05:04)
[2017-12-20 06:34] LABS: Basophils % 0.1 %; Eosinophils # 0.1 K/mcL (0.0-0.6); Eosinophils % 0.8 %; Hematocrit 43.8 % (35.3-44.9); Hemoglobin 15.8 g/dL (11.5-15.4); Immature Granulocytes % 0.4 % (0-4); Lymphocytes # 1.2 K/mcL (0.6-4.6); Lymphocytes % 16.4 %; Mean Corpuscular HGB Conc 36.1 g/dL (31.6-35.5); Mean Corpuscular Hemoglobin 37.9 pg (28.0-33.3); Mean Platelet Volume 11.8 fL (9.4-12.4); Monocytes # 0.7 K/mcL (0.0-1.3); Monocytes % 9.9 %; Neutrophils # 5.1 K/mcL (1.6-8.9); Platelet Count 189 K/mcL (140-400); Red Blood Count 4.17 M/mcL (3.82-4.97); Red Cell Distribution Width 14.5 % (11.5-14.5); Segmented Neutrophils % 72.4 %
[2017-12-20 06:54] LABS: BUN/Creatinine Ratio 12 (6-26); Blood Urea Nitrogen 5 mg/dL (6-20); Calcium 9.8 mg/dL (8.6-10.3); Carbon Dioxide 14 mEq/L (23-29); Chloride 106 mEq/L (98-107); Glucose 116 mg/dL (70-105); Magnesium 1.7 mg/dL (1.6-2.6); Osmolality,Calculated 276 (280-300); Potassium 3.2 mEq/L (3.5-5.1); Sodium 134 mEq/L (136-145); eGFR For African Americans > 60 (> 60); eGFR For Non-African Americans > 60 (> 60)
[2017-12-20 07:27] VITALS: BP 161/95
[2017-12-20] MEDS ORDERED: 0.9 % Sodium Chloride w KCl 40 MEQ/1,000 ML MLS IVC SCH (08:30)
[2017-12-20] MEDS: Folic Acid 1 MG TABLET PO SCH (08:56)
[2017-12-20] MEDS: Multivit/Ca/Min/Fe/FA 1 TAB TABLET PO SCH (08:56)
[2017-12-20] MEDS: Thiamine (B-1) 100 MG TABLET PO SCH (08:56)
[2017-12-20] MEDS: Nicotine 14 MG PATCH.TD24 TD SCH (08:57)
--- NOTE | 2017-12-20 09:32 | Discharge Summary ---
- NOTES TO OUTPATIENT PROVIDER Notes to Outpatient Provider: left AMA while being treated for acute pancreatitis, was only able to take clears and became slightly tachycardic on the day she left. Suspect she has cravings for EtOH again but was adamant about leaving the hospital despite understanding risk of worsening pancreatitis, sepsis, and . Date of Encounter: 12/20/17 Time of Encounter: 09:10 - Discharge Diagnosis (1) Acute pancreatitis Priority: Primary Status: Acute Qualifiers: Pancreatitis type: alcohol induced Acute pancreatitis complication: no infection or necrosis Qualified Code(s): K85.20 - Alcohol induced acute pancreatitis without necrosis or infection (2) UTI (urinary tract infection) Priority: Secondary Status: Resolved Qualifiers: Urinary tract infection type: acute cystitis Hematuria presence: with hematuria Qualified Code(s): N30.01 - Acute cystitis with hematuria (3) Alcoholism Priority: Secondary Status: Chronic (4) Tobacco abuse Priority: Secondary Status: Chronic (5) Hypertension Priority: Secondary Status: Chronic Qualifiers: Hypertension type: essential hypertension Qualified Code(s): I10 - Essential (primary) hypertension (6) Hypokalemia Priority: Secondary Status: Acute (7) DVT prophylaxis Priority: Secondary Status: Acute Hospital course: Ms. Guo is a 47 year old female with PMHx of pancreatitis, EtOH dependence, who presented to the ED with abdominal pain, N/V, and foul-smelling urine. Was diagnosed with EtOH pancreatitis and UTI and treated symptomatically + IV Rocephin for 5 days. Her recovery course was pretty slow, unable to tolerate clears up until 12/19 although there was no evidence of end-organ dysfunction or locoregional complications. On 12/20, she was slightly tachycardic and hypertensive and there was a concern on whether she is undergoing EtOH withdrawal. She has yet to take full liquids to see if she tolerates anything more than clears. However, she complained of back pain and inability to sleep due to uncomfortable hospital bed and requested to be discharged valerei. I explicitly explained to her that I cannot be sure that her pancreatitis has significantly improved due to the lack of advancement of her diet and was also concerned about EtOH withdrawal. Despite understanding the risk of worsening pancreatitis, sepsis, organ dysfunction, and even , she adamantly requested to be discharged stat and decided to leave AMA. Provided with a short course of pain meds and anti-emetics for her to take in case her condition deteriorates. Discharge discussed with: patient - Time Spent with Patient Total time spent providing and/or coordinating discharge services: Greater than 30 minutes - Discharge Medications Prescriptions: OxyCODONE/APAP 7.5/325 [Percocet 7.5/325 MG] 1 each PO Q4HR PRN 2 Days #8 tablet PRN Reason: Severe Pain amLODIPine [Norvasc] 5 mg PO DAILY 30 Days #30 tablet Ondansetron Oral Soln [Zofran Oral Soln] 2 mg PO Q6H PRN 2 Days #12 oral.syg PRN Reason: Nausea And Vomiting Home Medications: Ranitidine HCl [Acid [employer] Operations Technician] 75 mg PO DAILY PRN 12/16/17 [History] Ondansetron Oral Soln [Zofran Oral Soln] 2 mg PO Q6H PRN 2 Days #12 oral.syg [Rx] OxyCODONE/APAP 7.5/325 [Percocet 7.5/325 MG] 1 each PO Q4HR PRN 2 Days #8 tablet 12/20/17 [Rx] amLODIPine [Norvasc] 5 mg PO DAILY 30 Days #30 tablet 12/20/17 [Rx] Allergies/Adverse Reactions: 3 Allergy/AdvReac Type Severity Reaction Status Date / Time No Known Allergies Allergy Verified 12/16/17 08:58 Date of admission: 12/16/17 17:48 Primary care physician: Beverly Serna MD Consults: 12/17/17 15:44 Consult to [facility] [CONS] Routine Reason for SW Consult: alcohol [facility] - Constitutional Vitals: Temp Pulse Resp BP Pulse Ox 98.2 F 122 16 161/95 93 12/20/17 07:22 12/20/17 07:22 12/20/17 07:22 12/20/17 07:22 12/20/17 07:22 General appearance: Present: cooperative, mild distress, pleasant, answers questions appropriately Exam: General: Alert and oriented Cardiovascular:Normal S1 & S2, no murmurs or gallops. No JVD. Pulse regular. Lungs:Normal breath sounds, no wheezes or crackles. Abdomen:Soft, non-tender, no rebound/guarding Extremities:No deformity, no edema or tenderness, no joint swelling. Rest of the physical exam is non-contributory - Patient Status Disposition: Home, Self-Care Condition: Good Overall status at discharge: patient is progressing back to baseline - Discharge Instructions Instructions: Pancreatitis (DC), Urinary Tract Infection in Women (DC) Follow Up With: Beverly Serna MD [Primary Care Provider] - - Diet and Activity Activity: resume usual activities as tolerated Diet: advance to your usual diet
== END 2017-12-20 12:30 | disposition left against medical advice (07) | DRG 282 ==
LOC: EMEROO 20:58 → 3ANU 20:58 → SUATTDRO 12-16 17:48
PROVIDERS: ADMIT Internal Medicine; ATTEND Internal Medicine

== ENCOUNTER 2019-10-20 11:39 | Inpatient (IN) ==
[2019-10-20] MEDS ORDERED: Isovue-370 500 ML BOTTLE IVP ONE (12:09)
[2019-10-20] MEDS ORDERED: 0.9 % Sodium Chloride 1,000 ML IVC ONE (12:13)
[2019-10-20] MEDS ORDERED: *HR* FentaNYL (PF) 100 MCG/2 ML VIAL IVP ONE (12:13)
[2019-10-20 12:55] LABS: Hematocrit 30.5 % (35.3-44.9); Hemoglobin 9.2 g/dL (11.5-15.4); INR 1.3; Mean Corpuscular HGB Conc 30.2 g/dL (31.6-35.5); Mean Corpuscular Hemoglobin 27.1 pg (28.0-33.3); Mean Platelet Volume 9.3 fL (9.4-12.4); Platelet Count 342 K/mcL (140-400); Prothrombin Time 14.6 Seconds (9.4-12.1); Red Blood Count 3.39 M/mcL (3.82-4.97); Red Cell Distribution Width 18.4 % (11.5-14.5); White Blood Count 6.6 K/mcL (4.3-11.1)
[2019-10-20 12:58] LABS: Activated Partial Thrombo Time 49.7 Seconds (26.0-36.0)
[2019-10-20 13:10] LABS: Bilirubin,Urine Negative (Negative); Blood,Urine Negative (Negative); Clarity,Urine Clear (Clear); Color,Urine Yellow (Yellow); Glucose,Urine (UA) Normal (Normal); Ketones,Urine Negative (Negative); Leukocyte Esterase,Urine Moderate (Negative); Nitrite,Urine Negative (Negative); PH,Urine 6.5 pH Units (5.0-8.0); Protein,Urine Negative (Neg-Trace); Specific Gravity,Urine 1.008 (1.010-1.025); Urobilinogen,Urine Normal (Normal)
[2019-10-20 13:13] LABS: Bacteria,Urine Many per hpf (None-Few); Hyaline Casts,Urine None Seen per lpf (None-Few); RBC,Urine 0-3 per hpf (0-3); Squamous Epithelial Cell,Urine Many per lpf (None-Few)
[2019-10-20 13:28] LABS: Eosinophils # 0.1 K/mcL (0.0-0.6); Lymphocytes # 1.3 K/mcL (0.6-4.6); Monocytes # 0.4 K/mcL (0.0-1.3); Neutrophils # 4.8 K/mcL (1.6-8.9)
[2019-10-20 13:29] LABS: Anisocytosis 1+ (Not Present); Platelet Estimate Normal (Normal)
[2019-10-20 13:36] LABS: Alanine Aminotransferase 21 Units/L (7-52); Albumin 3.6 g/dL (3.5-5.7); Albumin/Globulin Ratio 1.2 (1.1-2.2); Alkaline Phosphatase 105 Units/L (34-104); Amylase 151 Units/L (29-103); Aspartate Amino Transferase 24 Units/L (13-39); BUN/Creatinine Ratio 10 (6-26); Bilirubin,Direct 0.1 mg/dL (0.0-0.2); Bilirubin,Indirect 0.1 mg/dL (0.0-1.0); Bilirubin,Total 0.2 mg/dL (0.3-1.0); Blood Urea Nitrogen 4 mg/dL (6-20); Calcium 8.3 mg/dL (8.6-10.3); Carbon Dioxide 24 mEq/L (23-29); Chloride 103 mEq/L (98-107); Globulin 3.1 g/dL (2.4-3.5); Glucose 93 mg/dL (70-105); Lipase 844 Units/L (11-82); Osmolality,Calculated 277 (280-300); Potassium 3.2 mEq/L (3.5-5.1); Sodium 135 mEq/L (136-145); Total Protein 6.7 g/dL (6.4-8.9); eGFR For African Americans > 60 (> 60); eGFR For Non-African Americans > 60 (> 60)
[2019-10-20] MEDS ORDERED: *HR* Promethazine 25 MG/ML VIAL IVP PRN (15:01)
[2019-10-20] MEDS ORDERED: Naloxone 0.4 MG/ML INJ IVP PRN (15:01)
[2019-10-20] MEDS ORDERED: Ondansetron 4 MG/2 ML VIAL IVP PRN (15:01)
[2019-10-20] MEDS ORDERED: *HR* LORazepam 2 MG/ML VIAL IVP PRN ×3 (15:53)
[2019-10-20] MEDS ORDERED: Ringers Solution, Lactated 500 ML IVC SCH (16:00)
[2019-10-20] MEDS: cefTRIAXone 2,000 MG in Water for inj. (sterile) 20 ML IVP SCH (16:36)
[2019-10-20] MEDS: Nicotine 21 MG PATCH.TD24 TD SCH (16:36)
[2019-10-20] MEDS: Ringers Solution, Lactated 500 ML IVC SCH ×3 (16:43→23:00)
[2019-10-21] MEDS: Ringers Solution, Lactated 1,000 ML IVC SCH ×6 (00:31→20:58)
[2019-10-21 05:24] LABS: Hematocrit 29.5 % (35.3-44.9); Mean Corpuscular HGB Conc 30.5 g/dL (31.6-35.5); Mean Corpuscular Hemoglobin 28.1 pg (28.0-33.3); Mean Corpuscular Volume 92.2 fL (83.0-100.0); Mean Platelet Volume 9.5 fL (9.4-12.4); Platelet Count 321 K/mcL (140-400); Red Cell Distribution Width 18.3 % (11.5-14.5)
[2019-10-21 05:47] LABS: % Iron Saturation 8 % (15-50); BUN/Creatinine Ratio 11 (6-26); Blood Urea Nitrogen 5 mg/dL (6-20); Carbon Dioxide 26 mEq/L (23-29); Chloride 106 mEq/L (98-107); Chol/HDL Ratio 4.9 (0-4.9); Cholesterol 84 mg/dL (< 200); Glucose 89 mg/dL (70-105); HDL Cholesterol 17 mg/dL (40-59); Iron 27 mcg/dL (50-170); LDL Cholesterol,Calculated 51 mg/dL (0-99); Magnesium 1.9 mg/dL (1.6-2.6); Osmolality,Calculated 285 (280-300); Phosphorous 3.1 mg/dL (2.7-4.5); Potassium 3.3 mEq/L (3.5-5.1); Sodium 139 mEq/L (136-145); Transferrin 257 mg/dL (203-362); Triglycerides 79 mg/dL (< 150); eGFR For African Americans > 60 (> 60); eGFR For Non-African Americans > 60 (> 60)
[2019-10-21 06:06] LABS: Ferritin 26 ng/mL (10-120)
[2019-10-21 06:08] LABS: Folate 5.9 ng/mL (3.0-16.0)
[2019-10-21] MEDS: Nicotine 21 MG PATCH.TD24 TD SCH (08:14)
[2019-10-21] MEDS ORDERED: Potassium Chloride 40 MEQ, Lidocaine 1% 2 ML in 0.9 % Sodium Chloride 500 ML IVPB ONE (08:34)
[2019-10-21 08:46] LABS: Estimated Average Glucose 126 mg/dl
[2019-10-21] MEDS ORDERED: Cyanocobalamin (B-12) 1,000 MCG/ML VIAL IM ONE (13:15)
[2019-10-21] MEDS: Thiamine (B-1) 100 MG in 0.9 % Sodium Chloride 50 ML IVPB SCH (13:53)
[2019-10-21] MEDS: cefTRIAXone 2,000 MG in Water for inj. (sterile) 20 ML IVP SCH (15:40)
[2019-10-22] MEDS: Ringers Solution, Lactated 1,000 ML IVC SCH ×2 (01:08→05:10)
[2019-10-22] MEDS: Ringers Solution, Lactated 500 ML IVC SCH (03:45)
[2019-10-22] MEDS: Nicotine 21 MG PATCH.TD24 TD SCH (07:30)
[2019-10-22] MEDS: Thiamine (B-1) 100 MG in 0.9 % Sodium Chloride 50 ML IVPB SCH (08:29)
[2019-10-22 10:17] LABS: Hematocrit 29.2 % (35.3-44.9); Hemoglobin 8.6 g/dL (11.5-15.4); Mean Corpuscular HGB Conc 29.5 g/dL (31.6-35.5); Mean Corpuscular Hemoglobin 27.2 pg (28.0-33.3); Mean Corpuscular Volume 92.4 fL (83.0-100.0); Mean Platelet Volume 9.7 fL (9.4-12.4); Platelet Count 357 K/mcL (140-400); Red Blood Count 3.16 M/mcL (3.82-4.97); White Blood Count 6.8 K/mcL (4.3-11.1)
[2019-10-22 10:28] LABS: BUN/Creatinine Ratio 10 (6-26); Blood Urea Nitrogen 4 mg/dL (6-20); Calcium 8.3 mg/dL (8.6-10.3); Carbon Dioxide 23 mEq/L (23-29); Chloride 104 mEq/L (98-107); Glucose 76 mg/dL (70-105); Magnesium 1.6 mg/dL (1.6-2.6); Osmolality,Calculated 274 (280-300); Potassium 3.8 mEq/L (3.5-5.1); Sodium 134 mEq/L (136-145); eGFR For African Americans > 60 (> 60); eGFR For Non-African Americans > 60 (> 60)
[2019-10-22] MEDS ORDERED: *HR* Enoxaparin 40 MG/0.4 ML SYRINGE SQ SCH (12:00)
[2019-10-22 13:09] LABS: Adenovirus Not Detected (Not Detect); Coronavirus 229E Not Detected (Not Detect); Coronavirus HKU1 Not Detected (Not Detect); Coronavirus NL63 Not Detected (Not Detect); Coronavirus OC43 Not Detected (Not Detect); Human Metapneumovirus Not Detected (Not Detect); Human Rhinovirus/Enterovirus Not Detected (Not Detect); Influenza A Subtype 2009 H1 Not Detected (Not Detect); Influenza B Not Detected (Not Detect); Parainfluenza Virus 1 Not Detected (Not Detect); Parainfluenza Virus 2 Not Detected (Not Detect); Parainfluenza Virus 3 Not Detected (Not Detect); Parainfluenza Virus 4 Not Detected (Not Detect)
[2019-10-22 13:10] LABS: Bordetella Pertussis Not Detected (Not Detect); Chlamydophila pneumoniae Not Detected (Not Detect); Mycoplasma pneumoniae Not Detected (Not Detect); Respiratory Syncytial Virus Not Detected (Not Detect)
[2019-10-22 14:52] VITALS: BP 135/82
[2019-10-22] MEDS ORDERED: Nicotine 2 MG GUM BC PRN (14:59)
== END 2019-10-22 15:24 | disposition left against medical advice (07) | DRG 282 ==
LOC: SUATTDRO → 3ANU 11:39 → EMEROOARM 11:39 → 3ANU 15:53
PROVIDERS: ADMIT Internal Medicine; ATTEND Internal Medicine

== ENCOUNTER 2021-03-28 17:18 | Inpatient (IN) ==
[2021-03-28 17:57] LABS: Basophils % 0.2 %; Eosinophils % 0.1 %; Hematocrit 33.9 % (35.3-44.9); Hemoglobin 10.8 g/dL (11.5-15.4); Immature Granulocytes % 0.3 % (0-4); Lymphocytes # 1.1 K/mcL (0.6-4.6); Lymphocytes % 12.7 %; Mean Corpuscular HGB Conc 31.9 g/dL (31.6-35.5); Mean Corpuscular Hemoglobin 29.8 pg (28.0-33.3); Mean Corpuscular Volume 93.6 fL (83.0-100.0); Mean Platelet Volume 10.6 fL (9.4-12.4); Monocytes # 0.7 K/mcL (0.0-1.3); Monocytes % 7.7 %; Neutrophils # 6.9 K/mcL (1.6-8.9); Platelet Count 261 K/mcL (140-400); Red Blood Count 3.62 M/mcL (3.82-4.97); Red Cell Distribution Width 15.6 % (11.5-14.5); White Blood Count 8.7 K/mcL (4.3-11.1)
[2021-03-28 18:00] LABS: ABG Base Excess 4 mEq/L (-2 to 3); ABG HCO3 30 mEq/L (21-27); ABG Oxygen Saturation 84 % (95-98); ABG PCO2 50 mmHg (35-45); ABG PH 7.38 pH Units (7.32-7.45); ABG PO2 50 mmHg (85-104); ABG TCO2 31 mEq/L (20-26)
[2021-03-28] MEDS ORDERED: Furosemide 40 MG/4 ML VIAL IVP ONE (18:00)
[2021-03-28 18:04] LABS: INR 1.9; Prothrombin Time 21.2 Seconds (9.4-12.1)
[2021-03-28 18:07] LABS: Activated Partial Thrombo Time 41.1 Seconds (26.0-36.0)
[2021-03-28 18:28] LABS: Alanine Aminotransferase 10 Units/L (7-52); Albumin/Globulin Ratio 0.5 (1.1-2.2); Alkaline Phosphatase 115 Units/L (34-104); Aspartate Amino Transferase 27 Units/L (13-39); BUN/Creatinine Ratio 12 (6-26); Bilirubin,Direct 0.2 mg/dL (0.0-0.2); Bilirubin,Indirect 0.5 mg/dL (0.0-1.0); Bilirubin,Total 0.7 mg/dL (0.3-1.0); Blood Urea Nitrogen 7 mg/dL (6-20); Calcium 7.5 mg/dL (8.6-10.3); Carbon Dioxide 34 mEq/L (23-29); Chloride 93 mEq/L (98-107); Glucose 133 mg/dL (70-105); Osmolality,Calculated 274 (280-300); Potassium 2.9 mEq/L (3.5-5.1); Sodium 132 mEq/L (136-145); Troponin I 0.04 ng/mL (< 0.04); eGFR For African Americans > 60 (> 60); eGFR For Non-African Americans > 60 (> 60)
[2021-03-28 18:40] LABS: Influenza A PCR Negative (Negative); Influenza B PCR Negative (Negative); Resp. Syncytial Virus PCR Negative (Negative)
[2021-03-28 18:57] LABS: SARS-CoV-2 by PCR (In House) Negative (Negative)
[2021-03-28 19:17] LABS: Bilirubin,Urine Negative (Negative); Blood,Urine Negative (Negative); Clarity,Urine Turbid (Clear); Color,Urine Yellow (Yellow); Glucose,Urine (UA) Normal (Normal); Hyaline Casts,Urine Moderate per lpf (None Seen); Ketones,Urine Negative (Negative); Leukocyte Esterase,Urine Negative (Negative); Mucus,Urine Few per lpf (None-Few); Nitrite,Urine Negative (Negative); Protein,Urine 30 mg/dL (Neg-Trace); RBC,Urine 0-3 per hpf (0-3); Specific Gravity,Urine 1.014 (1.010-1.025); Squamous Epithelial Cell,Urine Moderate per hpf (None-Few); Urobilinogen,Urine Normal (Normal); WBC,Urine 0-3 per hpf (0-3)
[2021-03-28] MEDS ORDERED: 0.9 % Sodium Chloride 250 ML ONE (19:39)
[2021-03-28] MEDS ORDERED: Isovue-370 500 ML BOTTLE IVP ONE (20:02)
[2021-03-28] MEDS ORDERED: Naloxone 0.4 MG/ML INJ IVP PRN (20:28)
[2021-03-28] MEDS ORDERED: Acetaminophen 325 MG TABLET PO PRN (20:28)
[2021-03-28] MEDS ORDERED: Furosemide 40 MG in 0.9 % Sodium Chloride 50 ML IV SCH (21:00)
[2021-03-28 21:33] LABS: C-Reactive Protein 165 mg/L (Less than 10)
[2021-03-28] MEDS: *HR* Heparin 5,000 UNIT/ML VIAL SQ SCH (23:54)
[2021-03-29] MEDS ORDERED: Perflutren Lipid Microsphere 1.3 ML in 0.9 % Sodium Chloride 8.7 ML IVP PRN (00:03)
[2021-03-29] MEDS ORDERED: *HR* LORazepam 2 MG/ML VIAL IVP PRN ×3 (00:09)
[2021-03-29 01:03] LABS: Adenovirus Not Detected (Not Detect); Bordetella Pertussis Not Detected (Not Detect); Chlamydophila pneumoniae Not Detected (Not Detect); Coronavirus 229E Not Detected (Not Detect); Coronavirus HKU1 Not Detected (Not Detect); Coronavirus NL63 Not Detected (Not Detect); Coronavirus OC43 Not Detected (Not Detect); Human Metapneumovirus Not Detected (Not Detect); Human Rhinovirus/Enterovirus Not Detected (Not Detect); Influenza A Subtype 2009 H1 Not Detected (Not Detect); Influenza B Not Detected (Not Detect); Mycoplasma pneumoniae Not Detected (Not Detect); Parainfluenza Virus 1 Not Detected (Not Detect); Parainfluenza Virus 2 Not Detected (Not Detect); Parainfluenza Virus 3 Not Detected (Not Detect); Parainfluenza Virus 4 Not Detected (Not Detect); Respiratory Syncytial Virus Not Detected (Not Detect); SARS-CoV-2 Not Detected (Not Detect)
[2021-03-29] MEDS: Piperacillin/Tazobactam 3.375 GM in 0.9 % Sodium Chloride Mini Bag 100 ML IVPB SCH ×2 (02:11→09:30)
[2021-03-29] MEDS ORDERED: *HR* Dextrose 50 % in Water (Syg) 50 ML SYRINGE IVP PRN (02:46)
[2021-03-29] MEDS ORDERED: D5% in Water 1,000 ML IVC PRN (02:46)
[2021-03-29] MEDS ORDERED: Dextrose Gel 15 GM/37.5 ML TUBE PO PRN ×2 (02:46)
[2021-03-29] MEDS ORDERED: Potassium Chloride 40 MEQ, Lidocaine 1% 2 ML in 0.9 % Sodium Chloride 500 ML IVPB ONE (03:54)
[2021-03-29 05:31] LABS: Basophils % 0.3 %; Hematocrit 29.9 % (35.3-44.9); Hemoglobin 9.5 g/dL (11.5-15.4); Immature Granulocytes % 0.7 % (0-4); Lymphocytes # 1.1 K/mcL (0.6-4.6); Mean Corpuscular HGB Conc 31.8 g/dL (31.6-35.5); Mean Corpuscular Hemoglobin 30.3 pg (28.0-33.3); Mean Corpuscular Volume 95.2 fL (83.0-100.0); Mean Platelet Volume 11.1 fL (9.4-12.4); Monocytes # 0.5 K/mcL (0.0-1.3); Monocytes % 6.2 %; Neutrophils # 5.6 K/mcL (1.6-8.9); Platelet Count 213 K/mcL (140-400); Red Blood Count 3.14 M/mcL (3.82-4.97); Red Cell Distribution Width 15.9 % (11.5-14.5); Segmented Neutrophils % 77.8 %; White Blood Count 7.2 K/mcL (4.3-11.1)
[2021-03-29 05:38] LABS: INR 1.9
[2021-03-29] MEDS: *HR* Heparin 5,000 UNIT/ML VIAL SQ SCH ×2 (06:20→17:47)
[2021-03-29 06:22] LABS: Hepatitis B Surface Antigen Nonreactive (Nonreactive)
[2021-03-29 06:52] LABS: Hepatitis C Virus Antibody Nonreactive (Nonreactive)
[2021-03-29 06:54] LABS: Hepatitis A Antibody IgM Nonreactive (Nonreactive); Hepatitis B Core IgM Nonreactive (Nonreactive)
[2021-03-29 08:45] LABS: Alanine Aminotransferase 10 Units/L (7-52); Albumin/Globulin Ratio 0.5 (1.1-2.2); Alkaline Phosphatase 110 Units/L (34-104); Aspartate Amino Transferase 26 Units/L (13-39); BUN/Creatinine Ratio 11 (6-26); Bilirubin,Total 0.9 mg/dL (0.3-1.0); Blood Urea Nitrogen 7 mg/dL (6-20); Calcium 7.7 mg/dL (8.6-10.3); Carbon Dioxide 34 mEq/L (23-29); Chloride 96 mEq/L (98-107); Globulin 3.8 g/dL (2.4-3.5); Glucose 95 mg/dL (70-105); Magnesium 1.5 mg/dL (1.6-2.6); Osmolality,Calculated 278 (280-300); Potassium 3.4 mEq/L (3.5-5.1); Sodium 135 mEq/L (136-145); Total Protein 5.8 g/dL (6.4-8.9); eGFR For African Americans > 60 (> 60); eGFR For Non-African Americans > 60 (> 60)
[2021-03-29 08:46] LABS: Troponin I 0.03 ng/mL (< 0.04)
[2021-03-29] MEDS ORDERED: Furosemide 40 MG TABLET PO SCH (11:45)
[2021-03-29] MEDS ORDERED: predniSONE 20 MG TABLET PO SCH (12:00)
[2021-03-29] MEDS ORDERED: cefTRIAXone 1,000 MG in Water for inj. (sterile) 10 ML IVP SCH (12:00)
[2021-03-29] MEDS: Spironolactone 25 MG TABLET PO SCH (12:33)
[2021-03-29] MEDS: Azithromycin 500 MG in 0.9 % Sodium Chloride 250 ML IVPB SCH (12:36)
[2021-03-29] MEDS ORDERED: Buprenorphine Hcl/Naloxone Hcl [Buprenorphine-Naloxone 8/2 mg] SL SCH (15:30)
[2021-03-29] MEDS: Ipratropium/Albuterol Neb 3 ML IH SCH ×3 (15:41→22:59)
[2021-03-29 17:08] LABS: RBC,Peritoneal Fluid < 2000 RBC/mcL
[2021-03-29 17:23] LABS: Appearance of Peritoneal Fl CLEAR (Clear)
[2021-03-29 17:26] LABS: Glucose,Peritoneal Fluid 132 mg/dL (No Ref Range); LDH,Peritoneal Fluid 60 Units/L (No Ref Range); Total Protein,Peritoneal Fluid < 2.0 g/dL
[2021-03-29] MEDS: Albumin 25% 25gram/100mL 25 GM/100 ML IV.SOLN IVC SCH (17:47)
[2021-03-29] MEDS: Gabapentin 400 MG CAPSULE PO SCH ×2 (17:47→21:33)
[2021-03-29] MEDS: Thiamine (B-1) 100 MG, Folic Acid 1 MG, MVI, adult with vitamin K 10 ML in 0.9 % Sodi... IVPB SCH (18:03)
[2021-03-29 18:05] LABS: Basophils,Peritoneal Fluid 0 %; Eosinophils,Peritoneal Fluid 0 %
[2021-03-29] MEDS: *HR* Buprenorphine HCl 8 MG TAB.SUBL SL SCH (18:28)
[2021-03-29] MEDS: MethylPREDNISolone 40 MG/ML VIAL IVP SCH (21:33)
[2021-03-29] MEDS: Furosemide 20 MG/2 ML VIAL IVP SCH (22:41)
[2021-03-30 01:58] LABS: Hematocrit 24.9 % (35.3-44.9); Hemoglobin 8.2 g/dL (11.5-15.4); Immature Granulocytes % 0.4 % (0-4); Lymphocytes # 0.4 K/mcL (0.6-4.6); Lymphocytes % 8.3 %; Mean Corpuscular HGB Conc 32.9 g/dL (31.6-35.5); Mean Corpuscular Hemoglobin 31.1 pg (28.0-33.3); Mean Corpuscular Volume 94.3 fL (83.0-100.0); Mean Platelet Volume 11.1 fL (9.4-12.4); Monocytes # 0.2 K/mcL (0.0-1.3); Monocytes % 3.9 %; Neutrophils # 4.5 K/mcL (1.6-8.9); Platelet Count 221 K/mcL (140-400); Red Blood Count 2.64 M/mcL (3.82-4.97); Red Cell Distribution Width 15.9 % (11.5-14.5); Segmented Neutrophils % 87.4 %; White Blood Count 5.2 K/mcL (4.3-11.1)
[2021-03-30 02:13] LABS: Alanine Aminotransferase 7 Units/L (7-52); Albumin 2.5 g/dL (3.5-5.7); Albumin/Globulin Ratio 0.8 (1.1-2.2); Alkaline Phosphatase 80 Units/L (34-104); Aspartate Amino Transferase 22 Units/L (13-39); BUN/Creatinine Ratio 10 (6-26); Bilirubin,Total 0.5 mg/dL (0.3-1.0); Blood Urea Nitrogen 6 mg/dL (6-20); Calcium 7.5 mg/dL (8.6-10.3); Carbon Dioxide 31 mEq/L (23-29); Chloride 99 mEq/L (98-107); Glucose 209 mg/dL (70-105); Osmolality,Calculated 288 (280-300); Potassium 3.5 mEq/L (3.5-5.1); Sodium 137 mEq/L (136-145); Total Protein 5.5 g/dL (6.4-8.9); eGFR For African Americans > 60 (> 60); eGFR For Non-African Americans > 60 (> 60)
[2021-03-30] MEDS: Ipratropium/Albuterol Neb 3 ML IH SCH ×4 (04:40→21:51)
[2021-03-30] MEDS: MethylPREDNISolone 40 MG/ML VIAL IVP SCH ×3 (05:35→21:34)
[2021-03-30] MEDS: *HR* Heparin 5,000 UNIT/ML VIAL SQ SCH ×2 (05:35→16:52)
[2021-03-30] MEDS ORDERED: cefTRIAXone 2,000 MG in Water for inj. (sterile) 20 ML IVP SCH (09:00)
[2021-03-30] MEDS: *HR* Buprenorphine HCl 8 MG TAB.SUBL SL SCH (09:03)
[2021-03-30] MEDS: Gabapentin 400 MG CAPSULE PO SCH ×3 (09:04→21:34)
[2021-03-30] MEDS: Spironolactone 25 MG TABLET PO SCH (09:04)
[2021-03-30] MEDS: Furosemide 20 MG/2 ML VIAL IVP SCH (09:04)
[2021-03-30] MEDS: Azithromycin 500 MG in 0.9 % Sodium Chloride 250 ML IVPB SCH (14:48)
[2021-03-30] MEDS: Lactulose Oral Soln 20 GM/30 ML UDC PO SCH ×2 (16:52→21:34)
[2021-03-30] MEDS: Albumin 25% 25gram/100mL 25 GM/100 ML IV.SOLN IVPB SCH (16:52)
[2021-03-30 17:34] LABS: Influenza A PCR Negative (Negative); Influenza B PCR Negative (Negative); Resp. Syncytial Virus PCR Negative (Negative)
[2021-03-30 17:59] LABS: SARS-CoV-2 by PCR (In House) Negative (Negative)
[2021-03-30] MEDS: Thiamine (B-1) 100 MG, Folic Acid 1 MG, MVI, adult with vitamin K 10 ML in 0.9 % Sodi... IVPB SCH (18:08)
[2021-03-31] MEDS: Albumin 25% 25gram/100mL 25 GM/100 ML IV.SOLN IVPB SCH ×4 (00:30→23:49)
[2021-03-31 02:06] LABS: Hematocrit 24.3 % (35.3-44.9); Hemoglobin 7.9 g/dL (11.5-15.4); Mean Corpuscular HGB Conc 32.5 g/dL (31.6-35.5); Mean Corpuscular Hemoglobin 30.6 pg (28.0-33.3); Mean Corpuscular Volume 94.2 fL (83.0-100.0); Platelet Count 213 K/mcL (140-400); Red Blood Count 2.58 M/mcL (3.82-4.97); Red Cell Distribution Width 16.1 % (11.5-14.5)
[2021-03-31 02:20] LABS: Alanine Aminotransferase 7 Units/L (7-52); Albumin 2.5 g/dL (3.5-5.7); Albumin/Globulin Ratio 0.9 (1.1-2.2); Alkaline Phosphatase 86 Units/L (34-104); Aspartate Amino Transferase 26 Units/L (13-39); Bilirubin,Total 0.5 mg/dL (0.3-1.0); Blood Urea Nitrogen 6 mg/dL (6-20); Calcium 7.4 mg/dL (8.6-10.3); Carbon Dioxide 33 mEq/L (23-29); Chloride 101 mEq/L (98-107); Globulin 2.8 g/dL (2.4-3.5); Glucose 160 mg/dL (70-105); Osmolality,Calculated 291 (280-300); Potassium 3.2 mEq/L (3.5-5.1); Sodium 140 mEq/L (136-145); Total Protein 5.3 g/dL (6.4-8.9)
[2021-03-31 03:08] LABS: BUN/Creatinine Ratio 13 (6-26); eGFR For African Americans > 60 (> 60); eGFR For Non-African Americans > 60 (> 60)
[2021-03-31] MEDS: Ipratropium/Albuterol Neb 3 ML IH SCH ×4 (03:24→21:22)
[2021-03-31] MEDS: MethylPREDNISolone 40 MG/ML VIAL IVP SCH ×3 (05:19→20:44)
[2021-03-31] MEDS: *HR* Heparin 5,000 UNIT/ML VIAL SQ SCH ×2 (05:20→17:14)
[2021-03-31] MEDS ORDERED: Potassium Chloride 40 MEQ, Lidocaine 1% 2 ML in 0.9 % Sodium Chloride 500 ML IVPB ONE (07:25)
[2021-03-31] MEDS ORDERED: Vancomycin 1,250 MG/262.5 ML IV.SOLN IVPB ONE (08:00)
[2021-03-31] MEDS: Lactulose Oral Soln 20 GM/30 ML UDC PO SCH ×2 (10:27→20:44)
[2021-03-31] MEDS: Furosemide 20 MG/2 ML VIAL IVP SCH ×2 (10:27→20:44)
[2021-03-31] MEDS: Cefepime HCl 2,000 MG in Water for inj. (sterile) 20 ML IVP SCH ×3 (10:27→23:47)
[2021-03-31] MEDS: Gabapentin 400 MG CAPSULE PO SCH ×3 (10:28→20:44)
[2021-03-31] MEDS: *HR* Buprenorphine HCl 8 MG TAB.SUBL SL SCH (10:28)
[2021-03-31] MEDS: Azithromycin 500 MG in 0.9 % Sodium Chloride 250 ML IVPB SCH (12:12)
[2021-03-31 14:54] LABS: Magnesium 1.7 mg/dL (1.6-2.6)
[2021-03-31] MEDS: Thiamine (B-1) 100 MG, Folic Acid 1 MG, MVI, adult with vitamin K 10 ML in 0.9 % Sodi... IVPB SCH (17:47)
[2021-03-31] MEDS: Albumin 25% 25gram/100mL 25 GM/100 ML IV.SOLN IVC SCH (20:50)
[2021-03-31 22:56] LABS: Fluid Source for Albumin PERITONEAL FL.
[2021-04-01] MEDS: Ipratropium/Albuterol Neb 3 ML IH SCH ×4 (03:31→20:26)
[2021-04-01] MEDS: *HR* Heparin 5,000 UNIT/ML VIAL SQ SCH ×2 (05:26→17:03)
[2021-04-01] MEDS: MethylPREDNISolone 40 MG/ML VIAL IVP SCH ×3 (05:26→21:33)
[2021-04-01 06:54] LABS: Hematocrit 25.4 % (35.3-44.9); Hemoglobin 7.9 g/dL (11.5-15.4); Mean Corpuscular HGB Conc 31.1 g/dL (31.6-35.5); Mean Corpuscular Volume 96.6 fL (83.0-100.0); Mean Platelet Volume 10.1 fL (9.4-12.4); Platelet Count 207 K/mcL (140-400); Red Blood Count 2.63 M/mcL (3.82-4.97); Red Cell Distribution Width 16.4 % (11.5-14.5); White Blood Count 5.6 K/mcL (4.3-11.1)
[2021-04-01 07:13] LABS: BUN/Creatinine Ratio 22 (6-26); Blood Urea Nitrogen 11 mg/dL (6-20); Calcium 8.6 mg/dL (8.6-10.3); Carbon Dioxide 35 mEq/L (23-29); Chloride 105 mEq/L (98-107); Glucose 164 mg/dL (70-105); Osmolality,Calculated 299 (280-300); Sodium 143 mEq/L (136-145); eGFR For African Americans > 60 (> 60); eGFR For Non-African Americans > 60 (> 60)
[2021-04-01] MEDS: Albumin 25% 25gram/100mL 25 GM/100 ML IV.SOLN IVPB SCH ×2 (08:59→16:47)
[2021-04-01] MEDS: Lactulose Oral Soln 20 GM/30 ML UDC PO SCH ×2 (09:14→21:32)
[2021-04-01] MEDS: Gabapentin 400 MG CAPSULE PO SCH ×3 (09:14→21:33)
[2021-04-01] MEDS: Furosemide 20 MG/2 ML VIAL IVP SCH (09:15)
[2021-04-01] MEDS: Cefepime HCl 2,000 MG in Water for inj. (sterile) 20 ML IVP SCH ×2 (09:15→17:02)
[2021-04-01] MEDS: *HR* Buprenorphine HCl 8 MG TAB.SUBL SL SCH (09:15)
[2021-04-01] MEDS: Spironolactone 12.5 MG TABLET PO SCH (13:02)
[2021-04-01] MEDS: Azithromycin 500 MG in 0.9 % Sodium Chloride 250 ML IVPB SCH (13:04)
[2021-04-01] MEDS: Furosemide 40 MG/4 ML VIAL IVP SCH (21:33)
[2021-04-02] MEDS: Cefepime HCl 2,000 MG in Water for inj. (sterile) 20 ML IVP SCH ×3 (00:33→15:52)
[2021-04-02] MEDS: Albumin 25% 25gram/100mL 25 GM/100 ML IV.SOLN IVPB SCH ×3 (00:34→15:55)
[2021-04-02 02:05] LABS: Hematocrit 24.7 % (35.3-44.9); Hemoglobin 7.7 g/dL (11.5-15.4); Immature Granulocytes % 0.7 % (0-4); Lymphocytes # 0.5 K/mcL (0.6-4.6); Lymphocytes % 9.6 %; Mean Corpuscular HGB Conc 31.2 g/dL (31.6-35.5); Mean Corpuscular Hemoglobin 30.2 pg (28.0-33.3); Mean Corpuscular Volume 96.9 fL (83.0-100.0); Mean Platelet Volume 10.7 fL (9.4-12.4); Monocytes # 0.2 K/mcL (0.0-1.3); Monocytes % 3.8 %; Neutrophils # 4.8 K/mcL (1.6-8.9); Platelet Count 203 K/mcL (140-400); Red Blood Count 2.55 M/mcL (3.82-4.97); Red Cell Distribution Width 16.8 % (11.5-14.5); Segmented Neutrophils % 85.9 %; White Blood Count 5.5 K/mcL (4.3-11.1)
[2021-04-02 02:23] LABS: BUN/Creatinine Ratio 25 (6-26); Blood Urea Nitrogen 14 mg/dL (6-20); Calcium 8.9 mg/dL (8.6-10.3); Carbon Dioxide 35 mEq/L (23-29); Chloride 103 mEq/L (98-107); Glucose 214 mg/dL (70-105); Osmolality,Calculated 303 (280-300); Potassium 3.8 mEq/L (3.5-5.1); Sodium 143 mEq/L (136-145); eGFR For African Americans > 60 (> 60); eGFR For Non-African Americans > 60 (> 60)
[2021-04-02] MEDS: Ipratropium/Albuterol Neb 3 ML IH SCH ×4 (04:05→20:06)
[2021-04-02] MEDS: *HR* Heparin 5,000 UNIT/ML VIAL SQ SCH ×2 (05:24→17:40)
[2021-04-02] MEDS: MethylPREDNISolone 40 MG/ML VIAL IVP SCH ×3 (05:24→20:34)
[2021-04-02] MEDS ORDERED: Folic Acid 1 MG TABLET PO SCH (09:00)
[2021-04-02] MEDS ORDERED: Azithromycin 250 MG TABLET PO SCH (09:00)
[2021-04-02] MEDS ORDERED: Thiamine (B-1) 100 MG TABLET PO SCH (09:00)
[2021-04-02] MEDS: Furosemide 40 MG/4 ML VIAL IVP SCH ×2 (09:43→20:34)
[2021-04-02] MEDS: Lactulose Oral Soln 20 GM/30 ML UDC PO SCH (10:22)
[2021-04-02] MEDS: Spironolactone 12.5 MG TABLET PO SCH (10:22)
[2021-04-02] MEDS: *HR* Buprenorphine HCl 8 MG TAB.SUBL SL SCH ×2 (10:23→11:54)
[2021-04-02] MEDS: Gabapentin 400 MG CAPSULE PO SCH ×3 (10:23→20:54)
[2021-04-02] MEDS: Vancomycin 1,500 MG/265 ML IV.SOLN IVPB SCH ×2 (11:06→20:35)
[2021-04-02 11:16] LABS: INR 1.5; Prothrombin Time 16.2 Seconds (9.4-12.1)
[2021-04-02] MEDS ORDERED: Folic Acid 1 MG in 0.9 % Sodium Chloride 50 ML IVPB ONE (11:42)
[2021-04-02] MEDS ORDERED: Lactulose 200 GM, Sodium Chloride IRRigation 700 ML RC ONE (13:00)
[2021-04-02] MEDS: Thiamine (B-1) 100 MG in 0.9 % Sodium Chloride 50 ML IVPB SCH (13:04)
[2021-04-02] MEDS: Azithromycin 500 MG in 0.9 % Sodium Chloride 250 ML IVPB SCH (13:09)
[2021-04-02] MEDS ORDERED: Lactulose Oral Soln 20 GM/30 ML UDC PO SCH (21:00)
[2021-04-03] MEDS: Cefepime HCl 2,000 MG in Water for inj. (sterile) 20 ML IVP SCH ×4 (01:32→23:39)
[2021-04-03 01:42] LABS: Hematocrit 25.2 % (35.3-44.9); Immature Granulocytes % 0.7 % (0-4); Lymphocytes # 0.5 K/mcL (0.6-4.6); Mean Corpuscular HGB Conc 31.7 g/dL (31.6-35.5); Mean Corpuscular Hemoglobin 30.4 pg (28.0-33.3); Mean Corpuscular Volume 95.8 fL (83.0-100.0); Mean Platelet Volume 10.5 fL (9.4-12.4); Monocytes # 0.2 K/mcL (0.0-1.3); Neutrophils # 4.7 K/mcL (1.6-8.9); Platelet Count 189 K/mcL (140-400); Red Blood Count 2.63 M/mcL (3.82-4.97); Red Cell Distribution Width 16.4 % (11.5-14.5); Segmented Neutrophils % 87.3 %; White Blood Count 5.4 K/mcL (4.3-11.1)
[2021-04-03 01:47] LABS: INR 1.7; Prothrombin Time 18.4 Seconds (9.4-12.1)
[2021-04-03 02:01] LABS: Alanine Aminotransferase 13 Units/L (7-52); Albumin 3.8 g/dL (3.5-5.7); Albumin/Globulin Ratio 1.6 (1.1-2.2); Alkaline Phosphatase 79 Units/L (34-104); Aspartate Amino Transferase 23 Units/L (13-39); BUN/Creatinine Ratio 37 (6-26); Bilirubin,Total 0.6 mg/dL (0.3-1.0); Blood Urea Nitrogen 19 mg/dL (6-20); Calcium 8.8 mg/dL (8.6-10.3); Carbon Dioxide 34 mEq/L (23-29); Chloride 102 mEq/L (98-107); Globulin 2.4 g/dL (2.4-3.5); Glucose 197 mg/dL (70-105); Osmolality,Calculated 308 (280-300); Potassium 3.5 mEq/L (3.5-5.1); Sodium 145 mEq/L (136-145); Total Protein 6.2 g/dL (6.4-8.9); eGFR For African Americans > 60 (> 60); eGFR For Non-African Americans > 60 (> 60)
[2021-04-03] MEDS: Ipratropium/Albuterol Neb 3 ML IH SCH ×4 (04:11→20:26)
[2021-04-03] MEDS: *HR* Heparin 5,000 UNIT/ML VIAL SQ SCH ×2 (05:42→18:18)
[2021-04-03] MEDS: MethylPREDNISolone 40 MG/ML VIAL IVP SCH ×3 (05:43→20:36)
[2021-04-03] MEDS: Dexmedetomidine HCl 400 MCG/100 ML MLS IVC SCH (05:53)
[2021-04-03] MEDS: Albumin 25% 25gram/100mL 25 GM/100 ML IV.SOLN IVPB SCH ×4 (08:56→23:39)
[2021-04-03] MEDS: Furosemide 40 MG/4 ML VIAL IVP SCH ×2 (08:57→20:36)
[2021-04-03] MEDS: Gabapentin 400 MG CAPSULE PO SCH ×3 (09:59→20:36)
[2021-04-03] MEDS: *HR* Buprenorphine HCl 8 MG TAB.SUBL SL SCH (10:00)
[2021-04-03] MEDS: Spironolactone 12.5 MG TABLET PO SCH (10:07)
[2021-04-03] MEDS: Thiamine (B-1) 100 MG in 0.9 % Sodium Chloride 50 ML IVPB SCH (10:49)
[2021-04-03] MEDS: Vancomycin 1,500 MG/265 ML IV.SOLN IVPB SCH (10:49)
[2021-04-03] MEDS: Azithromycin 500 MG in 0.9 % Sodium Chloride 250 ML IVPB SCH (12:27)
[2021-04-03] MEDS: Lactulose Oral Soln 20 GM/30 ML UDC PO SCH (20:46)
[2021-04-04 01:06] LABS: Basophils % 0.2 %; Hematocrit 27.5 % (35.3-44.9); Hemoglobin 8.6 g/dL (11.5-15.4); Immature Granulocytes % 1.1 % (0-4); Lymphocytes # 0.5 K/mcL (0.6-4.6); Lymphocytes % 7.1 %; Mean Corpuscular HGB Conc 31.3 g/dL (31.6-35.5); Mean Corpuscular Hemoglobin 30.2 pg (28.0-33.3); Mean Corpuscular Volume 96.5 fL (83.0-100.0); Mean Platelet Volume 10.9 fL (9.4-12.4); Monocytes # 0.2 K/mcL (0.0-1.3); Monocytes % 3.2 %; Neutrophils # 5.9 K/mcL (1.6-8.9); Platelet Count 159 K/mcL (140-400); Red Blood Count 2.85 M/mcL (3.82-4.97); Red Cell Distribution Width 16.2 % (11.5-14.5); Segmented Neutrophils % 88.4 %; White Blood Count 6.6 K/mcL (4.3-11.1)
[2021-04-04 01:25] LABS: Alanine Aminotransferase 23 Units/L (7-52); Albumin 4.2 g/dL (3.5-5.7); Albumin/Globulin Ratio 1.8 (1.1-2.2); Alkaline Phosphatase 88 Units/L (34-104); Aspartate Amino Transferase 36 Units/L (13-39); BUN/Creatinine Ratio 48 (6-26); Bilirubin,Total 0.8 mg/dL (0.3-1.0); Blood Urea Nitrogen 25 mg/dL (6-20); Calcium 8.9 mg/dL (8.6-10.3); Carbon Dioxide 35 mEq/L (23-29); Chloride 97 mEq/L (98-107); Globulin 2.4 g/dL (2.4-3.5); Glucose 255 mg/dL (70-105); Osmolality,Calculated 305 (280-300); Potassium 3.1 mEq/L (3.5-5.1); Sodium 141 mEq/L (136-145); Total Protein 6.6 g/dL (6.4-8.9); eGFR For African Americans > 60 (> 60); eGFR For Non-African Americans > 60 (> 60)
[2021-04-04] MEDS: Ipratropium/Albuterol Neb 3 ML IH SCH ×4 (04:00→20:25)
[2021-04-04] MEDS: *HR* Heparin 5,000 UNIT/ML VIAL SQ SCH ×2 (05:41→16:30)
[2021-04-04] MEDS: MethylPREDNISolone 40 MG/ML VIAL IVP SCH ×2 (05:42→12:01)
[2021-04-04] MEDS: Dexmedetomidine HCl 400 MCG/100 ML MLS IVC SCH (05:44)
[2021-04-04] MEDS: Cefepime HCl 2,000 MG in Water for inj. (sterile) 20 ML IVP SCH ×2 (08:29→16:30)
[2021-04-04] MEDS: Albumin 25% 25gram/100mL 25 GM/100 ML IV.SOLN IVPB SCH ×2 (08:30→16:31)
[2021-04-04] MEDS: Furosemide 40 MG/4 ML VIAL IVP SCH ×2 (08:31→21:09)
[2021-04-04] MEDS: Spironolactone 12.5 MG TABLET PO SCH (08:45)
[2021-04-04] MEDS: *HR* Buprenorphine HCl 8 MG TAB.SUBL SL SCH (08:45)
[2021-04-04] MEDS: Gabapentin 400 MG CAPSULE PO SCH ×3 (08:45→21:10)
[2021-04-04] MEDS: Lactulose Oral Soln 20 GM/30 ML UDC PO SCH ×2 (08:46→21:10)
[2021-04-04] MEDS ORDERED: Saline Nasal Spray 44 ML BOTTLE NS PRN (08:53)
[2021-04-04] MEDS: Thiamine (B-1) 100 MG in 0.9 % Sodium Chloride 50 ML IVPB SCH (09:05)
[2021-04-04 09:59] LABS: Magnesium 1.8 mg/dL (1.6-2.6)
[2021-04-04] MEDS: Azithromycin 500 MG in 0.9 % Sodium Chloride 250 ML IVPB SCH (12:00)
[2021-04-04] MEDS: Insulin LISPRO 300 UNITS/3 ML VIAL SUBQ SCH ×3 (12:37→21:04)
[2021-04-04] MEDS ORDERED: Gadolinium Contrast Agent (WT Based) IV PRN (12:57)
[2021-04-04] MEDS ORDERED: Vancomycin 1,250 MG/262.5 ML IV.SOLN IVPB SCH ×2 (17:00→21:00)
[2021-04-04] MEDS ORDERED: Insulin LISPRO 300 UNITS/3 ML VIAL SUBQ ONE (20:43)
[2021-04-04] MEDS ORDERED: Insulin DETEMIR 100 UNIT/ML X5UNITS SUBQ SCH (21:00)
[2021-04-04] MEDS: Ondansetron 4 MG/2 ML VIAL IVP PRN (21:03)
[2021-04-05] MEDS: Cefepime HCl 2,000 MG in Water for inj. (sterile) 20 ML IVP SCH ×2 (00:16→07:46)
[2021-04-05] MEDS: Albumin 25% 25gram/100mL 25 GM/100 ML IV.SOLN IVPB SCH ×3 (00:17→16:34)
[2021-04-05] MEDS ORDERED: *HR* Promethazine 25 MG/ML VIAL IM PRN (02:01)
[2021-04-05 03:29] LABS: Basophils % 0.1 %; Hematocrit 26.5 % (35.3-44.9); Hemoglobin 8.5 g/dL (11.5-15.4); Lymphocytes # 0.8 K/mcL (0.6-4.6); Lymphocytes % 8.6 %; Mean Corpuscular HGB Conc 32.1 g/dL (31.6-35.5); Mean Corpuscular Hemoglobin 30.4 pg (28.0-33.3); Mean Corpuscular Volume 94.6 fL (83.0-100.0); Monocytes # 0.4 K/mcL (0.0-1.3); Neutrophils # 7.6 K/mcL (1.6-8.9); Nucleated Red Blood Cells 0.2 /100 WBC (0); Platelet Count 155 K/mcL (140-400); Red Cell Distribution Width 15.9 % (11.5-14.5); Segmented Neutrophils % 86.3 %; White Blood Count 8.8 K/mcL (4.3-11.1)
[2021-04-05 03:37] LABS: Alanine Aminotransferase 35 Units/L (7-52); Albumin 4.9 g/dL (3.5-5.7); Albumin/Globulin Ratio 2.6 (1.1-2.2); Alkaline Phosphatase 91 Units/L (34-104); Aspartate Amino Transferase 35 Units/L (13-39); BUN/Creatinine Ratio 44 (6-26); Bilirubin,Total 0.9 mg/dL (0.3-1.0); Blood Urea Nitrogen 28 mg/dL (6-20); Calcium 9.6 mg/dL (8.6-10.3); Carbon Dioxide 43 mEq/L (23-29); Chloride 95 mEq/L (98-107); Globulin 1.9 g/dL (2.4-3.5); Glucose 165 mg/dL (70-105); Osmolality,Calculated 309 (280-300); Potassium 2.6 mEq/L (3.5-5.1); Sodium 145 mEq/L (136-145); Total Protein 6.8 g/dL (6.4-8.9); Troponin I < 0.03 ng/mL (< 0.04); eGFR For African Americans > 60 (> 60); eGFR For Non-African Americans > 60 (> 60)
[2021-04-05] MEDS: Ipratropium/Albuterol Neb 3 ML IH SCH ×4 (03:49→20:25)
[2021-04-05] MEDS: *HR* Heparin 5,000 UNIT/ML VIAL SQ SCH ×2 (04:52→18:08)
[2021-04-05] MEDS: Lactulose Oral Soln 20 GM/30 ML UDC PO SCH ×2 (07:44→20:37)
[2021-04-05] MEDS: *HR* Buprenorphine HCl 8 MG TAB.SUBL SL SCH (07:45)
[2021-04-05] MEDS: predniSONE 20 MG TABLET PO SCH (07:46)
[2021-04-05] MEDS: Gabapentin 400 MG CAPSULE PO SCH ×3 (07:46→20:38)
[2021-04-05] MEDS: Furosemide 40 MG/4 ML VIAL IVP SCH (07:47)
[2021-04-05] MEDS: Insulin LISPRO 300 UNITS/3 ML VIAL SUBQ SCH ×4 (07:58→20:37)
[2021-04-05 09:53] LABS: Magnesium 2.3 mg/dL (1.6-2.6)
[2021-04-05 11:38] LABS: VBG HCO3 40 mEq/L (21-27); VBG PCO2 67 mmHg (41-51); VBG PH 7.39 pH Units (7.32-7.42); VBG PO2 53 mmHg (25-50)
[2021-04-05] MEDS ORDERED: Azithromycin 250 MG TABLET PO SCH (12:00)
[2021-04-05 14:53] LABS: BUN/Creatinine Ratio 41 (6-26); Blood Urea Nitrogen 29 mg/dL (6-20); Calcium 9.2 mg/dL (8.6-10.3); Carbon Dioxide 41 mEq/L (23-29); Chloride 96 mEq/L (98-107); Glucose 178 mg/dL (70-105); Osmolality,Calculated 304 (280-300); Potassium 3.1 mEq/L (3.5-5.1); Sodium 142 mEq/L (136-145); eGFR For African Americans > 60 (> 60); eGFR For Non-African Americans > 60 (> 60)
[2021-04-05] MEDS: Folic Acid 1 MG TABLET PO SCH (18:07)
[2021-04-05] MEDS: Thiamine (B-1) 100 MG TABLET PO SCH (18:07)
[2021-04-05] MEDS ORDERED: Insulin DETEMIR 100 UNIT/ML X5UNITS SUBQ SCH ×2 (21:00)
[2021-04-05] MEDS: Furosemide 40 MG TABLET PO SCH (23:21)
[2021-04-06 02:48] LABS: Hematocrit 25.2 % (35.3-44.9); Hemoglobin 7.9 g/dL (11.5-15.4); INR 1.7; Immature Granulocytes % 0.7 % (0-4); Lymphocytes # 0.9 K/mcL (0.6-4.6); Lymphocytes % 9.4 %; Mean Corpuscular HGB Conc 31.3 g/dL (31.6-35.5); Mean Corpuscular Hemoglobin 29.9 pg (28.0-33.3); Mean Corpuscular Volume 95.5 fL (83.0-100.0); Mean Platelet Volume 11.1 fL (9.4-12.4); Monocytes # 0.3 K/mcL (0.0-1.3); Monocytes % 3.8 %; Neutrophils # 7.8 K/mcL (1.6-8.9); Platelet Count 143 K/mcL (140-400); Prothrombin Time 18.4 Seconds (9.4-12.1); Red Blood Count 2.64 M/mcL (3.82-4.97); Segmented Neutrophils % 86.1 %
[2021-04-06] MEDS: Ipratropium/Albuterol Neb 3 ML IH SCH ×4 (04:02→20:00)
[2021-04-06 04:05] LABS: Alanine Aminotransferase 89 Units/L (7-52); Albumin 4.3 g/dL (3.5-5.7); Albumin/Globulin Ratio 2.4 (1.1-2.2); Alkaline Phosphatase 91 Units/L (34-104); Aspartate Amino Transferase 84 Units/L (13-39); BUN/Creatinine Ratio 34 (6-26); Bilirubin,Total 0.8 mg/dL (0.3-1.0); Blood Urea Nitrogen 30 mg/dL (6-20); Calcium 9.1 mg/dL (8.6-10.3); Carbon Dioxide 37 mEq/L (23-29); Chloride 100 mEq/L (98-107); Globulin 1.8 g/dL (2.4-3.5); Glucose 136 mg/dL (70-105); Osmolality,Calculated 304 (280-300); Potassium 3.5 mEq/L (3.5-5.1); Sodium 143 mEq/L (136-145); Total Protein 6.1 g/dL (6.4-8.9); eGFR For African Americans > 60 (> 60); eGFR For Non-African Americans > 60 (> 60)
[2021-04-06] MEDS: *HR* Heparin 5,000 UNIT/ML VIAL SQ SCH ×2 (05:30→16:48)
[2021-04-06] MEDS: Insulin LISPRO 300 UNITS/3 ML VIAL SUBQ SCH ×4 (10:12→21:04)
[2021-04-06] MEDS: predniSONE 20 MG TABLET PO SCH (10:18)
[2021-04-06] MEDS: Gabapentin 400 MG CAPSULE PO SCH ×3 (10:18→21:04)
[2021-04-06] MEDS: Folic Acid 1 MG TABLET PO SCH (10:18)
[2021-04-06] MEDS: Thiamine (B-1) 100 MG TABLET PO SCH (10:18)
[2021-04-06] MEDS: *HR* Buprenorphine HCl 8 MG TAB.SUBL SL SCH (10:18)
[2021-04-06] MEDS: Lactulose Oral Soln 20 GM/30 ML UDC PO SCH ×2 (10:19→21:04)
[2021-04-06] MEDS: Furosemide 40 MG TABLET PO SCH ×2 (10:19→16:48)
[2021-04-06] MEDS ORDERED: Insulin DETEMIR 100 UNIT/ML X5UNITS SUBQ SCH (21:00)
[2021-04-06] MEDS: Melatonin 3 MG TABLET PO PRN (21:04)
[2021-04-07] MEDS: Ipratropium/Albuterol Neb 3 ML IH SCH ×4 (04:14→19:42)
[2021-04-07] MEDS: *HR* Heparin 5,000 UNIT/ML VIAL SQ SCH ×2 (06:16→17:36)
[2021-04-07 06:37] LABS: Hematocrit 26.7 % (35.3-44.9); Hemoglobin 8.3 g/dL (11.5-15.4); Immature Platelets 13.1 % (1.1-6.1); Mean Corpuscular HGB Conc 31.1 g/dL (31.6-35.5); Mean Corpuscular Hemoglobin 29.9 pg (28.0-33.3); Mean Platelet Volume 11.7 fL (9.4-12.4); Red Blood Count 2.78 M/mcL (3.82-4.97); Red Cell Distribution Width 16.2 % (11.5-14.5); White Blood Count 11.2 K/mcL (4.3-11.1)
[2021-04-07 06:53] LABS: Alanine Aminotransferase 119 Units/L (7-52); Albumin/Globulin Ratio 1.9 (1.1-2.2); Alkaline Phosphatase 121 Units/L (34-104); Aspartate Amino Transferase 87 Units/L (13-39); BUN/Creatinine Ratio 35 (6-26); Bilirubin,Total 0.8 mg/dL (0.3-1.0); Blood Urea Nitrogen 35 mg/dL (6-20); Calcium 9.2 mg/dL (8.6-10.3); Carbon Dioxide 37 mEq/L (23-29); Chloride 99 mEq/L (98-107); Globulin 2.1 g/dL (2.4-3.5); Glucose 114 mg/dL (70-105); Osmolality,Calculated 299 (280-300); Sodium 140 mEq/L (136-145); Total Protein 6.1 g/dL (6.4-8.9); eGFR For African Americans > 60 (> 60); eGFR For Non-African Americans 59 (> 60)
[2021-04-07] MEDS: Lactulose Oral Soln 20 GM/30 ML UDC PO SCH ×2 (08:37→21:21)
[2021-04-07] MEDS: *HR* Buprenorphine HCl 8 MG TAB.SUBL SL SCH (08:38)
[2021-04-07] MEDS: predniSONE 20 MG TABLET PO SCH (08:38)
[2021-04-07] MEDS: Furosemide 40 MG TABLET PO SCH ×2 (08:38→17:35)
[2021-04-07] MEDS: Thiamine (B-1) 100 MG TABLET PO SCH (08:38)
[2021-04-07] MEDS: Folic Acid 1 MG TABLET PO SCH (08:38)
[2021-04-07] MEDS: Gabapentin 400 MG CAPSULE PO SCH ×3 (08:38→21:21)
[2021-04-07] MEDS: Ondansetron 4 MG/2 ML VIAL IVP PRN (08:44)
[2021-04-07] MEDS: Insulin LISPRO 300 UNITS/3 ML VIAL SUBQ SCH ×4 (08:49→21:11)
[2021-04-07 09:28] LABS: Lipase 273 Units/L (11-82)
[2021-04-07] MEDS ORDERED: Perflutren Lipid Microsphere 1.3 ML in 0.9 % Sodium Chloride 8.7 ML IVP PRN (12:04)
[2021-04-07 15:59] LABS: Bilirubin,Urine Negative (Negative); Blood,Urine Large (Negative); Budding Yeast,Urine Few per hpf (None Seen); Clarity,Urine Turbid (Clear); Color,Urine Yellow (Yellow); Glucose,Urine (UA) Normal (Normal); Hyaline Casts,Urine Few per lpf (None Seen); Ketones,Urine Negative (Negative); Leukocyte Esterase,Urine Small (Negative); Mucus,Urine Few per lpf (None-Few); Nitrite,Urine Negative (Negative); Protein,Urine 100 mg/dL (Neg-Trace); RBC,Urine 50-100 per hpf (0-3); Specific Gravity,Urine 1.017 (1.010-1.025); Squamous Epithelial Cell,Urine Few per hpf (None-Few); Urobilinogen,Urine Normal (Normal); WBC,Urine 15-30 per hpf (0-3)
[2021-04-07] MEDS: Ampicillin 1,000 MG in 0.9 % Sodium Chloride Mini Bag 100 ML IVPB SCH (18:22)
[2021-04-07] MEDS ORDERED: Insulin DETEMIR 100 UNIT/ML X5UNITS SUBQ SCH (21:00)
[2021-04-07] MEDS: Melatonin 3 MG TABLET PO PRN (21:21)
[2021-04-08] MEDS: Ampicillin 1,000 MG in 0.9 % Sodium Chloride Mini Bag 100 ML IVPB SCH ×5 (01:00→23:44)
[2021-04-08] MEDS: Ipratropium/Albuterol Neb 3 ML IH SCH ×4 (03:46→20:03)
[2021-04-08 04:39] LABS: Hematocrit 26.4 % (35.3-44.9); Hemoglobin 8.6 g/dL (11.5-15.4); Mean Corpuscular HGB Conc 32.6 g/dL (31.6-35.5); Mean Corpuscular Hemoglobin 30.9 pg (28.0-33.3); Mean Platelet Volume 11.9 fL (9.4-12.4); Platelet Count 126 K/mcL (140-400); Red Blood Count 2.78 M/mcL (3.82-4.97); Red Cell Distribution Width 16.1 % (11.5-14.5)
[2021-04-08 04:48] LABS: INR 1.4; Prothrombin Time 15.6 Seconds (9.4-12.1)
[2021-04-08 05:00] LABS: Alanine Aminotransferase 105 Units/L (7-52); Albumin 3.6 g/dL (3.5-5.7); Albumin/Globulin Ratio 1.6 (1.1-2.2); Alkaline Phosphatase 124 Units/L (34-104); Aspartate Amino Transferase 76 Units/L (13-39); BUN/Creatinine Ratio 33 (6-26); Bilirubin,Total 0.9 mg/dL (0.3-1.0); Blood Urea Nitrogen 34 mg/dL (6-20); Calcium 8.8 mg/dL (8.6-10.3); Carbon Dioxide 35 mEq/L (23-29); Chloride 99 mEq/L (98-107); Globulin 2.3 g/dL (2.4-3.5); Glucose 78 mg/dL (70-105); Osmolality,Calculated 294 (280-300); Potassium 4.4 mEq/L (3.5-5.1); Sodium 139 mEq/L (136-145); Total Protein 5.9 g/dL (6.4-8.9); eGFR For African Americans > 60 (> 60); eGFR For Non-African Americans 57 (> 60)
[2021-04-08] MEDS: Ondansetron 4 MG/2 ML VIAL IVP PRN (05:21)
[2021-04-08] MEDS: *HR* Heparin 5,000 UNIT/ML VIAL SQ SCH ×2 (05:21→18:30)
[2021-04-08] MEDS: Insulin LISPRO 300 UNITS/3 ML VIAL SUBQ SCH ×4 (07:56→20:58)
[2021-04-08] MEDS: Furosemide 40 MG TABLET PO SCH ×2 (08:12→16:52)
[2021-04-08] MEDS: Lactulose Oral Soln 20 GM/30 ML UDC PO SCH ×2 (09:14→20:58)
[2021-04-08] MEDS: *HR* Buprenorphine HCl 8 MG TAB.SUBL SL SCH (09:15)
[2021-04-08] MEDS: Gabapentin 400 MG CAPSULE PO SCH ×3 (09:18→20:18)
[2021-04-08] MEDS: Thiamine (B-1) 100 MG TABLET PO SCH (09:18)
[2021-04-08] MEDS: predniSONE 20 MG TABLET PO SCH (09:18)
[2021-04-08] MEDS: Folic Acid 1 MG TABLET PO SCH (09:19)
[2021-04-08] MEDS ORDERED: *HR* Promethazine 25 MG/ML VIAL IM ONE (09:47)
[2021-04-08] MEDS: Albumin 25% 25gram/100mL 25 GM/100 ML IV.SOLN IVC SCH ×2 (16:53→18:27)
[2021-04-08] MEDS: Melatonin 3 MG TABLET PO PRN (23:46)
[2021-04-09] MEDS: Ipratropium/Albuterol Neb 3 ML IH SCH ×4 (03:22→20:57)
[2021-04-09 05:08] LABS: Basophils % 0.1 %; Eosinophils # 0.1 K/mcL (0.0-0.6); Eosinophils % 1.1 %; Hematocrit 25.5 % (35.3-44.9); Immature Granulocytes % 0.5 % (0-4); Mean Corpuscular HGB Conc 31.4 g/dL (31.6-35.5); Mean Corpuscular Hemoglobin 30.1 pg (28.0-33.3); Mean Corpuscular Volume 95.9 fL (83.0-100.0); Mean Platelet Volume 12.1 fL (9.4-12.4); Monocytes # 0.6 K/mcL (0.0-1.3); Monocytes % 7.9 %; Neutrophils # 6.4 K/mcL (1.6-8.9); Platelet Count 125 K/mcL (140-400); Red Blood Count 2.66 M/mcL (3.82-4.97); Red Cell Distribution Width 15.9 % (11.5-14.5); Segmented Neutrophils % 78.4 %; White Blood Count 8.2 K/mcL (4.3-11.1)
[2021-04-09 05:20] LABS: INR 1.5; Prothrombin Time 16.5 Seconds (9.4-12.1)
[2021-04-09 05:24] LABS: Alanine Aminotransferase 69 Units/L (7-52); Albumin 3.8 g/dL (3.5-5.7); Albumin/Globulin Ratio 1.8 (1.1-2.2); Alkaline Phosphatase 95 Units/L (34-104); Aspartate Amino Transferase 51 Units/L (13-39); BUN/Creatinine Ratio 28 (6-26); Bilirubin,Total 1.1 mg/dL (0.3-1.0); Blood Urea Nitrogen 29 mg/dL (6-20); Calcium 8.7 mg/dL (8.6-10.3); Carbon Dioxide 32 mEq/L (23-29); Chloride 98 mEq/L (98-107); Globulin 2.1 g/dL (2.4-3.5); Glucose 144 mg/dL (70-105); Osmolality,Calculated 294 (280-300); Potassium 3.6 mEq/L (3.5-5.1); Sodium 138 mEq/L (136-145); Total Protein 5.9 g/dL (6.4-8.9); eGFR For African Americans > 60 (> 60); eGFR For Non-African Americans 56 (> 60)
[2021-04-09] MEDS: Ampicillin 1,000 MG in 0.9 % Sodium Chloride Mini Bag 100 ML IVPB SCH ×3 (06:02→17:53)
[2021-04-09] MEDS: *HR* Heparin 5,000 UNIT/ML VIAL SQ SCH ×2 (06:03→17:53)
[2021-04-09] MEDS: Lactulose Oral Soln 20 GM/30 ML UDC PO SCH ×2 (08:41→20:33)
[2021-04-09] MEDS: Insulin LISPRO 300 UNITS/3 ML VIAL SUBQ SCH ×4 (08:41→20:24)
[2021-04-09] MEDS: Thiamine (B-1) 100 MG TABLET PO SCH (08:42)
[2021-04-09] MEDS: Furosemide 40 MG TABLET PO SCH ×2 (08:42→17:53)
[2021-04-09] MEDS: Folic Acid 1 MG TABLET PO SCH (08:43)
[2021-04-09] MEDS: Gabapentin 400 MG CAPSULE PO SCH ×3 (08:43→20:33)
[2021-04-09] MEDS: predniSONE 20 MG TABLET PO SCH (08:43)
[2021-04-09] MEDS: *HR* Buprenorphine HCl 8 MG TAB.SUBL SL SCH (08:44)
[2021-04-09] MEDS ORDERED: Fluconazole 150 MG TABLET PO ONE (15:50)
[2021-04-09] MEDS: Melatonin 3 MG TABLET PO PRN (20:34)
[2021-04-10] MEDS: Ampicillin 1,000 MG in 0.9 % Sodium Chloride Mini Bag 100 ML IVPB SCH ×3 (00:30→12:56)
[2021-04-10] MEDS: Ipratropium/Albuterol Neb 3 ML IH SCH ×4 (03:44→20:43)
[2021-04-10] MEDS: *HR* Heparin 5,000 UNIT/ML VIAL SQ SCH ×2 (05:42→21:59)
[2021-04-10 06:04] LABS: Eosinophils % 0.1 %; Hematocrit 23.3 % (35.3-44.9); Hemoglobin 7.6 g/dL (11.5-15.4); Immature Granulocytes % 0.5 % (0-4); Lymphocytes # 0.8 K/mcL (0.6-4.6); Lymphocytes % 8.9 %; Mean Corpuscular HGB Conc 32.6 g/dL (31.6-35.5); Mean Corpuscular Hemoglobin 30.6 pg (28.0-33.3); Mean Platelet Volume 12.7 fL (9.4-12.4); Monocytes # 0.6 K/mcL (0.0-1.3); Monocytes % 7.5 %; Platelet Count 133 K/mcL (140-400); Red Blood Count 2.48 M/mcL (3.82-4.97); Red Cell Distribution Width 15.9 % (11.5-14.5); White Blood Count 8.4 K/mcL (4.3-11.1)
[2021-04-10 06:22] LABS: Calcium 8.7 mg/dL (8.6-10.3); Potassium 3.7 mEq/L (3.5-5.1)
[2021-04-10] MEDS: Insulin LISPRO 300 UNITS/3 ML VIAL SUBQ SCH ×4 (09:05→21:59)
[2021-04-10] MEDS: Thiamine (B-1) 100 MG TABLET PO SCH (09:08)
[2021-04-10] MEDS: Furosemide 40 MG TABLET PO SCH (09:08)
[2021-04-10] MEDS: predniSONE 20 MG TABLET PO SCH (09:08)
[2021-04-10] MEDS: Folic Acid 1 MG TABLET PO SCH (09:08)
[2021-04-10] MEDS: Gabapentin 400 MG CAPSULE PO SCH ×3 (09:08→21:59)
[2021-04-10] MEDS: Lactulose Oral Soln 20 GM/30 ML UDC PO SCH ×2 (09:09→21:58)
[2021-04-10] MEDS: *HR* Buprenorphine HCl 8 MG TAB.SUBL SL SCH (09:09)
[2021-04-10] MEDS ORDERED: Gadolinium Contrast Agent (WT Based) IV PRN (13:59)
[2021-04-10] MEDS ORDERED: Torsemide 20 MG TABLET PO SCH ×2 (17:00→21:00)
[2021-04-11] MEDS: Ipratropium/Albuterol Neb 3 ML IH SCH ×2 (04:19→09:57)
[2021-04-11] MEDS: *HR* Heparin 5,000 UNIT/ML VIAL SQ SCH (05:18)
[2021-04-11 06:14] LABS: Hematocrit 25.7 % (35.3-44.9); Hemoglobin 8.3 g/dL (11.5-15.4); Mean Corpuscular HGB Conc 32.3 g/dL (31.6-35.5); Mean Corpuscular Hemoglobin 30.6 pg (28.0-33.3); Mean Corpuscular Volume 94.8 fL (83.0-100.0); Mean Platelet Volume 12.8 fL (9.4-12.4); Platelet Count 175 K/mcL (140-400); Red Blood Count 2.71 M/mcL (3.82-4.97); Red Cell Distribution Width 16.2 % (11.5-14.5); White Blood Count 11.3 K/mcL (4.3-11.1)
[2021-04-11 06:35] LABS: Calcium 8.3 mg/dL (8.6-10.3); Potassium 3.5 mEq/L (3.5-5.1)
[2021-04-11] MEDS ORDERED: predniSONE 20 MG TABLET PO SCH (09:00)
[2021-04-11] MEDS: Insulin LISPRO 300 UNITS/3 ML VIAL SUBQ SCH ×2 (09:28→12:41)
[2021-04-11] MEDS: *HR* Buprenorphine HCl 8 MG TAB.SUBL SL SCH (09:40)
[2021-04-11] MEDS: Gabapentin 400 MG CAPSULE PO SCH (09:40)
[2021-04-11] MEDS: Lactulose Oral Soln 20 GM/30 ML UDC PO SCH (09:40)
[2021-04-11] MEDS: Thiamine (B-1) 100 MG TABLET PO SCH (09:41)
[2021-04-11] MEDS: Folic Acid 1 MG TABLET PO SCH (09:42)
[2021-04-11 10:57] VITALS: BP 109/75; PULSE 103; TEMP 98.1; O2SAT 97
[2021-04-11] MEDS ORDERED: Torsemide 20 MG TABLET PO SCH (21:00)
== END 2021-04-11 13:44 | disposition hospice, home (50) | DRG 871 ==
LOC: EMEROOARM 17:18 → SUATTDRO 21:47 → 2ANU 21:47 → 2NNU 04-03 06:49 → 3NENU 04-04 11:15 → 3ANU 04-10 15:41
PROVIDERS: ADMIT Student in an Organized Health Care Education/Training Program; ATTEND Internal Medicine

== ENCOUNTER 2021-05-07 11:54 | Observation (INO) ==
[2021-05-07 13:21] LABS: Basophils % 0.4 %; Eosinophils % 0.3 %; Hematocrit 33.9 % (35.3-44.9); Hemoglobin 10.8 g/dL (11.5-15.4); Immature Granulocytes % 0.4 % (0-4); Lymphocytes # 1.2 K/mcL (0.6-4.6); Lymphocytes % 13.2 %; Mean Corpuscular HGB Conc 31.9 g/dL (31.6-35.5); Mean Corpuscular Hemoglobin 30.7 pg (28.0-33.3); Mean Corpuscular Volume 96.3 fL (83.0-100.0); Mean Platelet Volume 10.8 fL (9.4-12.4); Monocytes # 0.9 K/mcL (0.0-1.3); Monocytes % 9.6 %; Neutrophils # 6.9 K/mcL (1.6-8.9); Platelet Count 449 K/mcL (140-400); Red Blood Count 3.52 M/mcL (3.82-4.97); Red Cell Distribution Width 15.9 % (11.5-14.5); Segmented Neutrophils % 76.1 %; White Blood Count 9.1 K/mcL (4.3-11.1)
[2021-05-07] MEDS ORDERED: Metoclopramide 10 MG/2 ML VIAL IVP ONE (13:32)
[2021-05-07] MEDS ORDERED: Isovue-370 500 ML BOTTLE IVP ONE (13:33)
[2021-05-07 13:53] LABS: Alanine Aminotransferase 14 Units/L (7-52); Albumin 2.7 g/dL (3.5-5.7); Albumin/Globulin Ratio 0.7 (1.1-2.2); Alkaline Phosphatase 171 Units/L (34-104); Aspartate Amino Transferase 31 Units/L (13-39); BUN/Creatinine Ratio 18 (6-26); Bilirubin,Direct 0.1 mg/dL (0.0-0.2); Bilirubin,Indirect 0.5 mg/dL (0.0-1.0); Bilirubin,Total 0.6 mg/dL (0.3-1.0); Blood Urea Nitrogen 16 mg/dL (6-20); Calcium 8.4 mg/dL (8.6-10.3); Carbon Dioxide 23 mEq/L (23-29); Chloride 95 mEq/L (98-107); Glucose 105 mg/dL (70-105); Lipase 780 Units/L (11-82); Osmolality,Calculated 272 (280-300); Potassium 3.8 mEq/L (3.5-5.1); Sodium 130 mEq/L (136-145); Total Protein 6.7 g/dL (6.4-8.9); Troponin I < 0.03 ng/mL (< 0.04); eGFR For African Americans > 60 (> 60); eGFR For Non-African Americans > 60 (> 60)
[2021-05-07 14:05] LABS: Bilirubin,Urine Negative (Negative); Blood,Urine Negative (Negative); Clarity,Urine Turbid (Clear); Color,Urine Yellow (Yellow); Glucose,Urine (UA) Normal (Normal); Hyaline Casts,Urine Many per lpf (None Seen); Ketones,Urine Negative (Negative); Leukocyte Esterase,Urine Negative (Negative); Mucus,Urine Few per lpf (None-Few); Nitrite,Urine Negative (Negative); Protein,Urine 30 mg/dL (Neg-Trace); RBC,Urine 0-3 per hpf (0-3); Renal Epithelial Cells,Urine Few per hpf (None-Few); Specific Gravity,Urine 1.016 (1.010-1.025); Squamous Epithelial Cell,Urine Moderate per hpf (None-Few); Transitional Epi Cells,Urine Few per hpf (None-Few); Urobilinogen,Urine Normal (Normal)
[2021-05-07 14:49] LABS: INR 1.6; Prothrombin Time 17.4 Seconds (9.4-12.1)
[2021-05-07 14:52] LABS: Activated Partial Thrombo Time 40.8 Seconds (26.0-36.0)
[2021-05-07] MEDS ORDERED: Morphine Sulfate 2 MG/ML SYRINGE IVP ONE (15:34)
[2021-05-07] MEDS ORDERED: Piperacillin/Tazobactam 3.375 GM in Water for inj. (sterile) 20 ML IVP ONE (15:48)
[2021-05-07] MEDS ORDERED: Naloxone 0.4 MG/ML INJ IVP PRN (16:40)
[2021-05-07] MEDS ORDERED: cefTRIAXone 2,000 MG in Water for inj. (sterile) 20 ML IVP SCH (17:00)
[2021-05-07] MEDS ORDERED: Ondansetron 4 MG/2 ML VIAL IVP PRN (17:00)
[2021-05-07 17:12] LABS: Appearance of Body Fluid Cloudy (Clear); Volume of Body Fluid 1000 mL
[2021-05-07 19:44] LABS: Glucose,Peritoneal Fluid 102 mg/dL (No Ref Range); Total Protein,Peritoneal Fluid < 2.0 g/dL
[2021-05-07] MEDS: cefTRIAXone 2,000 MG in 0.9 % Sodium Chloride Mini Bag 100 ML IVPB SCH (19:56)
[2021-05-08 01:33] LABS: Basophils % 0.3 %; Eosinophils # 0.1 K/mcL (0.0-0.6); Eosinophils % 1.2 %; Hematocrit 25.4 % (35.3-44.9); Immature Granulocytes % 0.3 % (0-4); Lymphocytes # 1.6 K/mcL (0.6-4.6); Lymphocytes % 26.8 %; Mean Corpuscular HGB Conc 32.7 g/dL (31.6-35.5); Mean Corpuscular Hemoglobin 31.1 pg (28.0-33.3); Mean Corpuscular Volume 95.1 fL (83.0-100.0); Mean Platelet Volume 10.6 fL (9.4-12.4); Monocytes # 0.7 K/mcL (0.0-1.3); Monocytes % 11.8 %; Neutrophils # 3.6 K/mcL (1.6-8.9); Platelet Count 319 K/mcL (140-400); Red Blood Count 2.67 M/mcL (3.82-4.97); Red Cell Distribution Width 15.9 % (11.5-14.5); Segmented Neutrophils % 59.6 %; White Blood Count 6.1 K/mcL (4.3-11.1)
[2021-05-08 01:34] LABS: Hemoglobin 8.3 g/dL (11.5-15.4)
[2021-05-08 01:48] LABS: BUN/Creatinine Ratio 18 (6-26); Blood Urea Nitrogen 15 mg/dL (6-20); Calcium 7.4 mg/dL (8.6-10.3); Carbon Dioxide 26 mEq/L (23-29); Chloride 97 mEq/L (98-107); Glucose 142 mg/dL (70-105); Osmolality,Calculated 271 (280-300); Potassium 3.5 mEq/L (3.5-5.1); Sodium 129 mEq/L (136-145); eGFR For African Americans > 60 (> 60); eGFR For Non-African Americans > 60 (> 60)
[2021-05-08 02:01] LABS: Anisocytosis 1+ (Not Present); Platelet Estimate Normal (Normal)
[2021-05-08] MEDS ORDERED: Ipratropium/Albuterol Neb 3 ML IH PRN (11:05)
[2021-05-08] MEDS: Apixaban 5 MG TABLET PO SCH ×2 (11:42→20:00)
[2021-05-08] MEDS: Lactulose Oral Soln 20 GM/30 ML UDC PO SCH ×2 (11:42→20:00)
[2021-05-08] MEDS: cefTRIAXone 2,000 MG in 0.9 % Sodium Chloride Mini Bag 100 ML IVPB SCH (18:25)
[2021-05-08] MEDS: Torsemide 20 MG TABLET PO SCH (20:00)
[2021-05-09 01:18] LABS: Basophils % 0.4 %; Eosinophils # 0.1 K/mcL (0.0-0.6); Eosinophils % 1.6 %; Hematocrit 26.5 % (35.3-44.9); Hemoglobin 8.6 g/dL (11.5-15.4); Immature Granulocytes % 0.4 % (0-4); Lymphocytes # 1.5 K/mcL (0.6-4.6); Lymphocytes % 31.5 %; Mean Corpuscular HGB Conc 32.5 g/dL (31.6-35.5); Mean Corpuscular Hemoglobin 30.9 pg (28.0-33.3); Mean Corpuscular Volume 95.3 fL (83.0-100.0); Mean Platelet Volume 10.5 fL (9.4-12.4); Monocytes # 0.6 K/mcL (0.0-1.3); Monocytes % 12.1 %; Platelet Count 305 K/mcL (140-400); Red Blood Count 2.78 M/mcL (3.82-4.97); Red Cell Distribution Width 15.5 % (11.5-14.5); White Blood Count 4.9 K/mcL (4.3-11.1)
[2021-05-09 01:23] LABS: Neutrophils # 2.7 K/mcL (1.6-8.9)
[2021-05-09 01:38] LABS: Anisocytosis 1+ (Not Present); Platelet Estimate Normal (Normal)
[2021-05-09 01:40] LABS: BUN/Creatinine Ratio 13 (6-26); Blood Urea Nitrogen 11 mg/dL (6-20); Calcium 7.2 mg/dL (8.6-10.3); Carbon Dioxide 26 mEq/L (23-29); Chloride 96 mEq/L (98-107); Glucose 110 mg/dL (70-105); Osmolality,Calculated 268 (280-300); Potassium 3.2 mEq/L (3.5-5.1); Sodium 129 mEq/L (136-145); eGFR For African Americans > 60 (> 60); eGFR For Non-African Americans > 60 (> 60)
[2021-05-09 06:57] VITALS: BP 98/67; PULSE 80; TEMP 98.5; O2SAT 96
[2021-05-09] MEDS: Torsemide 20 MG TABLET PO SCH (08:48)
[2021-05-09] MEDS: Lactulose Oral Soln 20 GM/30 ML UDC PO SCH (08:48)
[2021-05-09] MEDS: Apixaban 5 MG TABLET PO SCH (08:49)
[2021-05-09] MEDS ORDERED: BUPRENORPHINE HCL SL SCH (09:00)
[2021-05-09] MEDS ORDERED: NALOXONE HCL SL SCH (09:00)
== END 2021-05-09 10:30 | disposition home or self-care (01) ==
LOC: EMEROOARM 11:54 → 3BNU 11:54
PROVIDERS: ADMIT Pharmacist; ATTEND Pharmacist